=== PATIENT | female | born 1975 | race African-American/Black ===

== ENCOUNTER 2016-08-09 13:07 | Inpatient (IN) | payer OTHER ==
[2016-08-09 13:28] VITALS: BMI 22.8
--- NOTE | 2016-08-09 14:21 | HP ---
CIWA Score - CIWA Score Nausea/Vomitin-Mild Nausea/No Vomiting Muscle Tremors: 4-Moderate,w/Arms Extend Anxiety: 4-Mod. Anxious/Guarded Agitation: 1-Slight > Activity Paroxysmal Sweats: 1-Minimal Palms Moist Orientation: 0-Oriented Tacttile Disturbances: 1-Very Mild Itch/Numbness Auditory Disturbances: 1-Very Mild Visual Disturbances: 1-Very Mild Sensitivity Headache: 1-Very Mild CIWA-Ar Total Score: 15 Admission ROS BHS - HPI Chief Complaint: I'm tired, I want to stop Allergies/Adverse Reactions: Allergies Allergy/AdvReac Type Severity Reaction Status Date / Time acetaminophen Allergy Verified 01/23/16 16:10 shellfish derived Allergy Verified 01/23/16 16:10 History of Present Illness: 41 yo woman here for detox from alcohol - one of several detox admissions. Has had alcohol related seizures - last two years ago and black outs. urine tox + cocaine - states uses it rarely. States was in [facility] on 08/04/16 for a few hours for intravenous fluids. Exam Limitations: Clinical Condition - Ebola screening Have you traveled outside of the country in the last 21 days: No Have you had contact with anyone from an Ebola affected area: No Have you been sick,other than usual withdrawal symptoms: No Do you have a fever: No - Review of Systems Constitutional: Loss of Appetite, Malaise, Changes in sleep EENT: reports: Blurred Vision Respiratory: reports: No Symptoms reported Cardiac: reports: No Symptoms Reported GI: reports: Poor Appetite, Indigestion : reports: Burning Musculoskeletal: reports: No Symptoms Reported Integumentary: reports: Dryness Neuro: reports: Headache, Seizure Endocrine: reports: No Symptoms Reported Hematology: reports: No Symptoms Reported Psychiatric: reports: Judgement Intact, Mood/Affect Appropiate, Orientated x3, Anxious Other Systems: Reviewed and Negative Patient History - Patient Medical History Hx Anemia: Yes (iron) Hx Asthma: Yes Hx Chronic Obstructive Pulmonary Disease (COPD): Yes Hx Cancer: No Hx Cardiac Disorders: Yes (Heart Murmur) Hx Congestive Heart Failure: No Hx Hypertension: Yes Hx Hypercholesterolemia: No Hx Pacemaker: No HX Cerebrovascular Accident: No Hx Seizures: Yes (Last 2014) Hx Dementia: No Hx Diabetes: No Hx Gastrointestinal Disorders: Yes (Acid reflux) Hx Liver Disease: No Hx Genitourinary Disorders: No Hx Sexually Transmitted Disorders: No Hx Renal Disease (ESRD): No Hx Thyroid Disease: No Hx Human Immunodeficiency Virus (HIV): No Hx Hepatitis C: No Hx Depression: Yes (never hospitalized) Hx Suicide Attempt: No Hx Bipolar Disorder: Yes Hx Schizophrenia: Yes (on meds) - Patient Surgical History Past Surgical History: Yes Hx Neurologic Surgery: No Hx Cataract Extraction: No Hx Cardiac Surgery: No Hx Lung Surgery: No Hx Breast Surgery: No Hx Breast Biopsy: No Hx Abdominal Surgery: No Hx Appendectomy: No Hx Cholecystectomy: No Hx Genitourinary Surgery: No Hx Section: Yes (1997) Hx Orthopedic Surgery: Yes (2015 right knee, 2012 left neck) Hx Hysterectomy: No Anesthesia Reaction: No - PPD History Previous Implant?: Yes Documented Results: Negative w/proof Date: 01/09/16 PPD to be Administered?: No - Reproductive History Patient is a Female of Child Bearing Age (11 -55 yrs old): Yes Last Menstrual Period: 01/07/16 - Smoking Cessation Smoking history: Current every day smoker Have you smoked in the past 12 months: Yes Aproximately how many cigarettes per day: 20 Hx Chewing Tobacco Use: No Initiated information on smoking cessation: Yes 'Breaking Loose' booklet given: 08/09/16 (give on floor) - Substance & Tx. History Hx Alcohol Use: Yes Substance Use Type: Alcohol Hx Substance Use Treatment: Yes (detox, rehab) - Substances Abused Alcohol Route: Oral Frequency: Daily Amount used: 2 pints liquor; 2 cans beer Age of first use: 15 Date of Last Use: 08/09/16 Family Disease History - Family Disease History Family Disease History: Diabetes: Grandparent, Heart Disease: Mother (alive, htn ), CA: Father (, etoh), Other: Father, Mother, Brother (etoh), Sister ( due to alcohol) Admission Physical Exam BHS - Vital Signs Vital Signs: Vital Signs - 24 hr 08/09/16 13:26 Temperature 96.6 F L Pulse Rate 66 Respiratory 20 Rate Blood Pressure 144/71 - Physical General Appearance: Yes: Nourished, Appropriately Dressed, Mild Distress, Anxious, Other (poor dentition) HEENTM: Yes: Hearing grossly Normal, Normocephalic, Normal Voice Respiratory: Yes: Normal Breath Sounds, No Respiratory Distress Neck: Yes: No masses,lesions,Nodules, Supple Breast: Yes: Breast Exam Deferred Cardiology: Yes: Regular Rhythm, Regular Rate Abdominal: Yes: Soft Genitourinary: Yes: Frequency Back: Yes: Normal Inspection Musculoskeletal: Yes: full range of Motion, Gait Steady Extremities: Yes: Normal Inspection, Non-Tender Neurological: Yes: Fully Oriented, Alert, Normal Mood/Affect, Normal Response Integumentary: Yes: Normal Color, Warm Lymphatic: Yes: Within Normal Limits - Diagnostic (1) GERD (gastroesophageal reflux disease) Current Visit: Yes Status: Chronic Qualifiers: Esophagitis presence: esophagitis presence not specified Qualified Code(s): K21.9 - Gastro-esophageal reflux disease without esophagitis (2) Hypertension Current Visit: Yes Status: Chronic Qualifiers: Hypertension type: essential hypertension Qualified Code(s): I10 - Essential (primary) hypertension (3) Nicotine dependence Current Visit: Yes Status: Chronic Qualifiers: Nicotine product type: cigarettes Substance use status: uncomplicated Qualified Code(s): F17.210 - Nicotine dependence, cigarettes, uncomplicated (4) Alcohol dependence with uncomplicated withdrawal Current Visit: Yes Status: Chronic Cleared for Admission [facility] - Detox or Rehab [facility] Level of Care: Medically Managed Detox Regimen/Protocol: Librium [facility] Breath Alcohol Content Breath Alcohol Content: 0.180 Urine Pregancy Test - Result Urine Test Results: Negative- NO Line Present Urine Drug Screen - Results Drug Screen Negative: No Urine Drug Screen Results: MARIBEL-Cocaine, BAR-Barbiturates
[2016-08-09] MEDS ORDERED: NICOTINE POLACRILEX 4 MG GUM BUC PRN (14:32)
[2016-08-09] MEDS ORDERED: MAGNESIUM HYDROX 2400MG/30ML ORAL SUSPENSION 30 ML CUP PO PRN (14:32)
[2016-08-09] MEDS ORDERED: P-EPHED 60MG/TRIPROLIDI 2.5MG TABLET PO PRN (14:32)
[2016-08-09] MEDS ORDERED: MAG HYDROX/AL HYDROX/SIMETH 30 ML UNIT-DOSE CUP PO PRN (14:32)
[2016-08-09] MEDS ORDERED: MAGNESIUM CITRATE 300 ML BOTTLE PO PRN (14:32)
[2016-08-09] MEDS ORDERED: MENTHOL/PHENOL 1 EACH UD MM PRN (14:32)
[2016-08-09] MEDS ORDERED: guaiFENesin/D-METHORPHAN HB 10 ML UNIT-DOSE CUPS PO PRN (14:32)
[2016-08-09] MEDS ORDERED: diphenhydrAMINE HCL 50 MG CAPSULE PO PRN (14:32)
[2016-08-09] MEDS ORDERED: LOPERAMIDE HCL 2 MG CAPSULE PO PRN (14:32)
[2016-08-09] MEDS ORDERED: IBUPROFEN 400 MG TABLET (FP) PO PRN (14:32)
[2016-08-09] MEDS ORDERED: chlordiazePOXIDE HCL 25 MG CAPSULE PO ONE (14:32)
[2016-08-09] MEDS ORDERED: COLLOIDAL OATMEAL 1 BAR EACH TP PRN (14:34)
[2016-08-09] MEDS: NICOTINE 21 MG/24 HOURS TOPICAL PATCH TD SCH (16:16)
[2016-08-09] MEDS: chlordiazePOXIDE HCL 25 MG CAPSULE PO SCH ×2 (17:27→22:27)
[2016-08-09 17:57] LABS: URINE APPEARANCE CLEAR; URINE BILIRUBIN NEGATIVE (NEGATIVE); URINE BLOOD NEGATIVE (NEGATIVE); URINE COLOR STRAW; URINE GLUCOSE (UA) NEGATIVE (NEGATIVE); URINE KETONE NEGATIVE (NEGATIVE); URINE LEUK ESTERASE NEGATIVE (NEGATIVE); URINE NITRITE NEGATIVE (NEGATIVE); URINE PROTEIN NEGATIVE (NEGATIVE); URINE UROBILINOGEN NEGATIVE E.U./dl (0.2-1.0)
[2016-08-09] MEDS: THIAMINE HCL 100 MG TABLET (FP) PO SCH (22:27)
[2016-08-10] MEDS: chlordiazePOXIDE HCL 25 MG CAPSULE PO SCH ×4 (05:26→22:19)
[2016-08-10] MEDS: PRENATAL VITAMINS W/ FOLIC ACID TABLET (FP) PO SCH (10:31)
[2016-08-10] MEDS: hydrOXYzine PAMOATE 50 MG CAPSULE (FP) PO PRN (10:32)
[2016-08-10] MEDS: NICOTINE 21 MG/24 HOURS TOPICAL PATCH TD SCH (10:32)
[2016-08-10] MEDS ORDERED: FERROUS SO4 325 MG TABLET (FP) PO SCH ×2 (10:45→11:15)
[2016-08-10 10:50] LABS: ALBUMIN 3.5 g/dl (3.4-5.0); ANION GAP 14 (8-16); CALCIUM 8.5 mg/dL (8.5-10.1); CO2 24 mmol/L (21-32); CREATININE 0.7 mg/dL (0.55-1.02); GLUCOSE,RANDOM 84 mg/dL (74-106); SGPT/ALT 17 U/L (12-78)
[2016-08-10 10:52] LABS: ALK PHOS 80 U/L (45-117); BILIRUBIN,TOTAL 0.9 mg/dL (0.2-1.0); TOT PROT 7.7 g/dl (6.4-8.2)
[2016-08-10 10:57] LABS: SGOT/AST 33 U/L (15-37)
[2016-08-10 11:03] LABS: MCH 31.1 pg (25.7-33.7); MCHC 32.1 g/dl (32.0-36.0); MEAN CELL VOLUME 96.8 fl (80-96); MEAN PLT VOLUME 9.4 fl (7.5-11.1); PLATELET COUNT 153 K/MM3 (134-434); RDW 18.2 % (11.6-15.6); WHITE BLOOD COUNT 7.4 K/mm3 (4.0-10.0)
--- NOTE | 2016-08-10 11:06 | PN ---
S CIWA - CIWA Score Nausea/Vomitin Muscle Tremors: 3 Anxiety: 3 Agitation: 3 Paroxysmal Sweats: 1-Minimal Palms Moist Orientation: 0-Oriented Tacttile Disturbances: 1-Very Mild Itch/Numbness Auditory Disturbances: 1-Very Mild Visual Disturbances: 1-Very Mild Sensitivity Headache: 2-Mild CIWA-Ar Total Score: 18 BHS Progress Note (SOAP) Subjective: alert,irritable,anxious,interrupted sleep,tremor Objective: 08/10/16 10:57 Vital Signs Temperature 97.2 F L 08/10/16 09:26 Pulse Rate 69 08/10/16 09:26 Respiratory Rate 18 08/10/16 09:26 Blood Pressure 150/80 08/10/16 09:26 O2 Sat by Pulse Oximetry (%) Laboratory Last Values Sodium 138 mmol/L (136-145) 08/10/16 07:45 Potassium 4.5 mmol/L (3.5-5.1) D 08/10/16 07:45 Chloride 100 mmol/L (98-107) 08/10/16 07:45 Carbon Dioxide 24 mmol/L (21-32) 08/10/16 07:45 Anion Gap 14 (8-16) 08/10/16 07:45 BUN 9 mg/dL (7-18) D 08/10/16 07:45 Creatinine 0.7 mg/dL (0.55-1.02) 08/10/16 07:45 Creat Clearance w eGFR > 60 (>60) 08/10/16 07:45 Random Glucose 84 mg/dL (74-106) 08/10/16 07:45 Calcium 8.5 mg/dL (8.5-10.1) 08/10/16 07:45 Total Bilirubin 0.9 mg/dL (0.2-1.0) D 08/10/16 07:45 AST 33 U/L (15-37) D 08/10/16 07:45 ALT 17 U/L (12-78) D 08/10/16 07:45 Alkaline Phosphatase 80 U/L (45-117) D 08/10/16 07:45 Total Protein 7.7 g/dl (6.4-8.2) 08/10/16 07:45 Albumin 3.5 g/dl (3.4-5.0) 08/10/16 07:45 Urine Color Straw 08/09/16 17:40 Urine Appearance Clear 08/09/16 17:40 Urine pH 7.0 (5.0-8.0) D 08/09/16 17:40 Ur Specific [place] 1.006 (1.001-1.035) 08/09/16 17:40 Urine Protein Negative (NEGATIVE) 08/09/16 17:40 Urine Glucose (UA) Negative (NEGATIVE) 08/09/16 17:40 Urine Ketones Negative (NEGATIVE) 08/09/16 17:40 Urine Blood Negative (NEGATIVE) 08/09/16 17:40 Urine Nitrite Negative (NEGATIVE) 08/09/16 17:40 Urine Bilirubin Negative (NEGATIVE) 08/09/16 17:40 Urine Urobilinogen Negative E.U./dl (0.2-1.0) 08/09/16 17:40 Ur Leukocyte Esterase Negative (NEGATIVE) 08/09/16 17:40 labs pending Assessment: 08/10/16 11:06 withdrawal symptom Plan: continue detox
--- NOTE | 2016-08-10 11:17 | PN ---
S Progress Note Note: Psychiatry Attending's on-call note : Called to enter orders. Medications :olanzapine,risperdal,gabapentin and trazodone. For this 41 y/o AA female seeking detox treatment on . Addressing alcohol and cocaine dependence.Patient already known to me. Previous charts and S report are reviewed.Spoke to patient via telephone. Eager to resume medications.Most recent intake : a week ago (self-report). Plan : . Gabapentin 300 mg po tid . Risperdal 1 mg po daily . Trazodone 100 mg po hs . Olanzapine 5 mg po hs. Side effects/benefits discussed with patient. Case discussed with nurse in charge,Talib. Diagnosis : Bipolar Disorder.
[2016-08-10] MEDS: risperiDONE 1 MG TABLET (FP) PO SCH (11:25)
[2016-08-10] MEDS: RANITIDINE HCL 150 MG TABLET (FP) PO SCH ×2 (11:25→22:19)
[2016-08-10] MEDS: amLODIPine BESYLATE 5 MG TABLET (FP) PO SCH (11:25)
[2016-08-10] MEDS ORDERED: GABAPENTIN 300 MG CAPSULE (FP) PO ONE (11:30)
[2016-08-10] MEDS: chlordiazePOXIDE HCL 25 MG CAPSULE PO PRN ×2 (12:37→18:56)
[2016-08-10] MEDS: GABAPENTIN 300 MG CAPSULE (FP) PO SCH ×3 (15:31→22:19)
[2016-08-10] MEDS ORDERED: OLANZapine 5 MG TABLET PO SCH (22:00)
[2016-08-10] MEDS: THIAMINE HCL 100 MG TABLET (FP) PO SCH (22:19)
--- NOTE | 2016-08-11 00:48 | EKG ---
Test Reason : Blood Pressure : / mmHG Vent. Rate : 066 BPM Atrial Rate : 066 BPM P-R Int : 168 ms QRS Dur : 102 ms QT Int : 446 ms P-R-T Axes : 020 021 039 degrees QTc Int : 467 ms NORMAL SINUS RHYTHM NORMAL ECG NO PREVIOUS ECGS AVAILABLE Confirmed by ISABELL CRAIG MD ([id number]) on 08/11/2016 12:48:10 AM Referred By: Confirmed By:ISABELL CRAIG MD
[2016-08-11] MEDS: chlordiazePOXIDE HCL 25 MG CAPSULE PO SCH ×2 (05:30→10:38)
[2016-08-11] MEDS: GABAPENTIN 300 MG CAPSULE (FP) PO SCH ×3 (05:30→22:25)
--- NOTE | 2016-08-11 09:56 | CONSULT ---
[facility] Psychiatric Consult - Data Date of interview: 08/11/16 Admission source: [facility] Identifying data: Radmission to [facility] for this 41 y/o AA female seeking detox treatment on for alcohol dependence.Patient is single,a mother of four,domiciled,unemployed and supported on food stamps. Substance Abuse History: - Smoking Cessation. Smoking history: Current every day smoker. Have you smoked in the past 12 months: Yes. Aproximately how many cigarettes per day: 20. Hx Chewing Tobacco Use: No. Initiated information on smoking cessation: Yes. 'Breaking Loose' booklet given: 08/09/16 (give on floor ). - Substance & Tx. History. Hx Alcohol Use: Yes. Substance Use Type: Alcohol. Hx Substance Use Treatment: Yes (detox, rehab). - Substances Abused. Alcohol. Route: Oral. Frequency: Daily. Amount used: 2 pints liquor; 2 cans beer. Age of first use: 15. Date of Last Use: 08/09/16. Confirmed by the patient in this interview. Medical History: Bronchial asthma,COPD,hypothyroidism,withdrawal related seizure ,GERD,hypertension and anemia.History of orthosurgery on right knee (2016). Psychiatric History: Patient admits to a history of one psychiatric hospitalization ([facility]) in [place], [place] in 2016.Diagnosis : bipolar disorder.Medications : risperdal 1 mg/day + trazodone 100 mg/hs + gabapentin 300 mg po tid + olanzapine 10 mg/hs.Ms Calixto does admit to sporadic compliance with medications/clinic appointments.Patient denies history of suicide attempts. Physical/Sexual Abuse/Trauma History: Patient denies. Additional Comment: Urine Drug Screen Results: MARIBEL-Cocaine, BAR- Barbiturates.Noted. Mental Status Exam - Mental Status Exam Alert and Oriented to: Time, Place, Person Cognitive Function: Good Patient Appearance: Disheveled Mood: Nervous, Anxious, Apprehensive Affect: Mood Congruent Patient Behavior: Cooperative Speech Pattern: Clear Voice Loudness: Normal Thought Process: Goal Oriented Thought Disorder: Not Present Hallucinations: Denies Suicidal Ideation: Denies Homicidal Ideation: Denies Insight/Judgement: Poor Sleep: Poorly, Difficulty falling asleep (requests zolpidem;no longer wiiling to take trazodone) Appetite: Good Muscle strength/Tone: Normal Gait/Station: Normal Psychiatric Findings - Problem List ([place] 1, 2,3) (1) Alcohol dependence with uncomplicated withdrawal Current Visit: Yes Status: Acute (2) Nicotine dependence Current Visit: Yes Status: Acute Qualifiers: Nicotine product type: cigarettes Substance use status: uncomplicated Qualified Code(s): F17.210 - Nicotine dependence, cigarettes, uncomplicated (3) Cocaine abuse Current Visit: Yes Status: Acute (4) Bipolar disorder Current Visit: Yes Status: Chronic Qualifiers: Active/Remission status: in remission of unspecified degree Qualified Code(s): F31.70 - Bipolar disorder, currently in remission, most recent episode unspecified (5) Substance induced mood disorder Current Visit: Yes Status: Suspected (6) GERD (gastroesophageal reflux disease) Current Visit: Yes Status: Chronic Qualifiers: Esophagitis presence: esophagitis presence not specified Qualified Code(s): K21.9 - Gastro-esophageal reflux disease without esophagitis (7) Hypertension Current Visit: Yes Status: Chronic Qualifiers: Hypertension type: essential hypertension Qualified Code(s): I10 - Essential (primary) hypertension (8) Anemia Current Visit: No Status: Chronic Qualifiers: Anemia type: iron deficiency Iron deficiency anemia type: inadequate dietary iron intake Qualified Code(s): D50.8 - Other iron deficiency anemias (9) Insomnia Current Visit: Yes Status: Chronic - Initial Treatment Plan Initial Treatment Plan: Psychoeducation.Detoxification.Medications : risperdal 2 mg po daily (patient's request) + gabapentin 300 mg po tid + ambien 10 mg po hs prn + olanzapine 10 mg po hs.Side effects/benefits discussed with the patient.She agrees with this plan.Observation.
[2016-08-11] MEDS ORDERED: risperiDONE 2 MG TABLET PO SCH (10:00)
[2016-08-11] MEDS: PRENATAL VITAMINS W/ FOLIC ACID TABLET (FP) PO SCH (10:38)
[2016-08-11] MEDS: RANITIDINE HCL 150 MG TABLET (FP) PO SCH ×2 (10:38→22:24)
[2016-08-11] MEDS: amLODIPine BESYLATE 5 MG TABLET (FP) PO SCH (10:38)
[2016-08-11] MEDS: risperiDONE 1 MG TABLET (FP) PO SCH (10:39)
[2016-08-11] MEDS: risperiDONE 2 MG TABLET PO SCH (10:40)
[2016-08-11] MEDS: NICOTINE 21 MG/24 HOURS TOPICAL PATCH TD SCH (10:42)
--- NOTE | 2016-08-11 11:50 | PN ---
S CIWA - CIWA Score Nausea/Vomitin Muscle Tremors: 3 Anxiety: 3 Agitation: 2 Paroxysmal Sweats: 1-Minimal Palms Moist Orientation: 0-Oriented Tacttile Disturbances: 1-Very Mild Itch/Numbness Auditory Disturbances: 1-Very Mild Visual Disturbances: 1-Very Mild Sensitivity Headache: 2-Mild CIWA-Ar Total Score: 17 BHS Progress Note (SOAP) Subjective: ALERT,IRRITABLE,ANXIOUS,INTERRUPTED SLEEP,TREMOR Objective: 08/11/16 11:49 Vital Signs Temperature 97.8 F 08/11/16 10:00 Pulse Rate 71 08/11/16 10:00 Respiratory Rate 18 08/11/16 10:00 Blood Pressure 143/73 08/11/16 10:00 O2 Sat by Pulse Oximetry (%) 08/11/16 11:49 Laboratory Last Values WBC 7.4 K/mm3 (4.0-10.0) D 08/10/16 07:45 RBC 3.76 M/mm3 (3.60-5.2) 08/10/16 07:45 Hgb 11.7 GM/dL (10.7-15.3) 08/10/16 07:45 Hct 36.4 % (32.4-45.2) 08/10/16 07:45 MCV 96.8 fl (80-96) H 08/10/16 07:45 MCHC 32.1 g/dl (32.0-36.0) 08/10/16 07:45 RDW 18.2 % (11.6-15.6) H D 08/10/16 07:45 Plt Count 153 K/MM3 (134-434) 08/10/16 07:45 MPV 9.4 fl (7.5-11.1) 08/10/16 07:45 Sodium 138 mmol/L (136-145) 08/10/16 07:45 Potassium 4.5 mmol/L (3.5-5.1) D 08/10/16 07:45 Chloride 100 mmol/L (98-107) 08/10/16 07:45 Carbon Dioxide 24 mmol/L (21-32) 08/10/16 07:45 Anion Gap 14 (8-16) 08/10/16 07:45 BUN 9 mg/dL (7-18) D 08/10/16 07:45 Creatinine 0.7 mg/dL (0.55-1.02) 08/10/16 07:45 Creat Clearance w eGFR > 60 (>60) 08/10/16 07:45 Random Glucose 84 mg/dL (74-106) 08/10/16 07:45 Calcium 8.5 mg/dL (8.5-10.1) 08/10/16 07:45 Total Bilirubin 0.9 mg/dL (0.2-1.0) D 08/10/16 07:45 AST 33 U/L (15-37) D 08/10/16 07:45 ALT 17 U/L (12-78) D 08/10/16 07:45 Alkaline Phosphatase 80 U/L (45-117) D 08/10/16 07:45 Total Protein 7.7 g/dl (6.4-8.2) 08/10/16 07:45 Albumin 3.5 g/dl (3.4-5.0) 08/10/16 07:45 Urine Color Straw 08/09/16 17:40 Urine Appearance Clear 08/09/16 17:40 Urine pH 7.0 (5.0-8.0) D 08/09/16 17:40 Ur Specific [place] 1.006 (1.001-1.035) 08/09/16 17:40 Urine Protein Negative (NEGATIVE) 08/09/16 17:40 Urine Glucose (UA) Negative (NEGATIVE) 08/09/16 17:40 Urine Ketones Negative (NEGATIVE) 08/09/16 17:40 Urine Blood Negative (NEGATIVE) 08/09/16 17:40 Urine Nitrite Negative (NEGATIVE) 08/09/16 17:40 Urine Bilirubin Negative (NEGATIVE) 08/09/16 17:40 Urine Urobilinogen Negative E.U./dl (0.2-1.0) 08/09/16 17:40 Ur Leukocyte Esterase Negative (NEGATIVE) 08/09/16 17:40 RPR Titer Nonreactive (NONREACTIVE) 08/10/16 07:45 Assessment: 08/11/16 11:50 WITHDRAWAL SYMPTOM Plan: CONTINUE DETOX
[2016-08-11] MEDS: chlordiazePOXIDE 5 MG CAPSULE PO SCH ×2 (17:11→22:24)
[2016-08-11] MEDS ORDERED: traZODone HCL 100 MG TABLET (FP) PO SCH (22:00)
[2016-08-11] MEDS: OLANZapine 10 MG TABLET PO SCH (22:24)
[2016-08-11] MEDS: THIAMINE HCL 100 MG TABLET (FP) PO SCH (22:24)
[2016-08-11] MEDS: ZOLPIDEM TARTRATE 10 MG TABLET (PARK CARE ONLY) PO PRN (22:25)
[2016-08-12] MEDS: GABAPENTIN 300 MG CAPSULE (FP) PO SCH ×3 (05:51→22:15)
[2016-08-12] MEDS: chlordiazePOXIDE 5 MG CAPSULE PO SCH ×2 (05:51→10:30)
[2016-08-12] MEDS: PRENATAL VITAMINS W/ FOLIC ACID TABLET (FP) PO SCH (10:29)
[2016-08-12] MEDS: amLODIPine BESYLATE 5 MG TABLET (FP) PO SCH (10:30)
[2016-08-12] MEDS: RANITIDINE HCL 150 MG TABLET (FP) PO SCH ×2 (10:30→22:15)
[2016-08-12] MEDS: risperiDONE 2 MG TABLET PO SCH (10:30)
[2016-08-12] MEDS: NICOTINE 21 MG/24 HOURS TOPICAL PATCH TD SCH (10:32)
--- NOTE | 2016-08-12 12:13 | PN ---
BHS Progress Note (SOAP) Subjective: shakes, nausea, lbp Objective: 08/12/16 12:11 Vital Signs Temperature 97.2 F L 08/12/16 09:50 Pulse Rate 81 08/12/16 09:50 Respiratory Rate 16 08/12/16 09:50 Blood Pressure 145/77 08/12/16 09:50 O2 Sat by Pulse Oximetry (%) Vital Signs Temperature 97.2 F L 08/12/16 09:50 Pulse Rate 81 08/12/16 09:50 Respiratory Rate 16 08/12/16 09:50 Blood Pressure 145/77 08/12/16 09:50 O2 Sat by Pulse Oximetry (%) Laboratory Tests 08/09/16 08/10/16 08/10/16 17:40 07:45 07:45 WBC 7.4 D RBC 3.76 Hgb 11.7 Hct 36.4 MCV 96.8 H MCHC 32.1 RDW 18.2 H D Plt Count 153 MPV 9.4 Sodium 138 Potassium 4.5 D Chloride 100 Carbon Dioxide 24 Anion Gap 14 BUN 9 D Creatinine 0.7 Creat Clearance w eGFR > 60 Random Glucose 84 Calcium 8.5 Total Bilirubin 0.9 D AST 33 D ALT 17 D Alkaline Phosphatase 80 D Total Protein 7.7 Albumin 3.5 Urine Color Straw Urine Appearance Clear Urine pH 7.0 D Ur Specific [place] 1.006 Urine Protein Negative Urine Glucose (UA) Negative Urine Ketones Negative Urine Blood Negative Urine Nitrite Negative Urine Bilirubin Negative Urine Urobilinogen Negative Ur Leukocyte Esterase Negative RPR Titer 08/10/16 07:45 WBC RBC Hgb Hct MCV MCHC RDW Plt Count MPV Sodium Potassium Chloride Carbon Dioxide Anion Gap BUN Creatinine Creat Clearance w eGFR Random Glucose Calcium Total Bilirubin AST ALT Alkaline Phosphatase Total Protein Albumin Urine Color Urine Appearance Urine pH Ur Specific [place] Urine Protein Urine Glucose (UA) Urine Ketones Urine Blood Urine Nitrite Urine Bilirubin Urine Urobilinogen Ur Leukocyte Esterase RPR Titer Nonreactive pt aox3 in nad ambulating Assessment: 08/12/16 12:12 withdrawal sx;s Plan: cont. detox increase fluids lidocaine patch
[2016-08-12] MEDS ORDERED: LIDOCAINE 5% TOPICAL PATCH TP ONE (12:34)
[2016-08-12] MEDS: hydrOXYzine PAMOATE 50 MG CAPSULE (FP) PO PRN (16:00)
[2016-08-12] MEDS: chlordiazePOXIDE HCL 10 MG CAPSULE PO SCH ×2 (17:27→22:14)
[2016-08-12] MEDS: THIAMINE HCL 100 MG TABLET (FP) PO SCH (22:15)
[2016-08-12] MEDS: ZOLPIDEM TARTRATE 10 MG TABLET (PARK CARE ONLY) PO PRN (22:15)
[2016-08-12] MEDS: OLANZapine 10 MG TABLET PO SCH (23:41)
[2016-08-13] MEDS: GABAPENTIN 300 MG CAPSULE (FP) PO SCH (05:40)
[2016-08-13] MEDS: chlordiazePOXIDE HCL 10 MG CAPSULE PO SCH ×2 (05:40→10:47)
[2016-08-13] MEDS: hydrOXYzine PAMOATE 50 MG CAPSULE (FP) PO PRN (07:50)
--- NOTE | 2016-08-13 09:01 | DS ---
[facility] Detox Discharge Summary Admission Date: 08/09/16 Discharge Date: 08/13/16 - History Present History: Alcohol Dependence, Cocaine Dependence - Physical Exam Results Vital Signs: Vital Signs Temperature 97.5 F L 08/13/16 06:08 Pulse Rate 76 08/13/16 06:08 Respiratory Rate 18 08/13/16 06:08 Blood Pressure 127/83 08/13/16 06:08 O2 Sat by Pulse Oximetry (%) - Treatment Hospital Course: Detox Protocol Followed, Detoxed Safely, Responded well, Discharged Condition Good Patient has Accepted a Rehab Referral to: [facility] - Medication Discharge Medications: Ambulatory Orders Olanzapine [ZyPREXA -] 10 mg PO DAILY 01/07/16 Risperidone [Risperdal -] 1 mg PO DAILY 01/07/16 Trazodone HCl [Desyrel -] 100 mg PO HS 01/07/16 Amlodipine Besylate [Norvasc -] 5 mg PO DAILY #30 tablet 01/11/16 Gabapentin [Neurontin -] 400 mg PO TID #90 capsule 01/30/16 Ferrous Sulfate [Feosol] 325 mg PO DAILY #30 tablet 01/31/16 Ranitidine HCl [Zantac] 150 mg PO BID #60 tablet 01/31/16 Gabapentin [Neurontin -] 300 mg PO TID #60 capsule 08/11/16 Olanzapine [Zyprexa] 10 mg PO HS #30 tablet 08/11/16 Risperidone [Risperdal] 2 mg PO DAILY #30 tablet 08/11/16 Trazodone HCl 100 mg PO HS #30 tablet 08/11/16 - Diagnosis (1) Alcohol dependence with uncomplicated withdrawal Current Visit: Yes Status: Chronic (2) Cocaine abuse Current Visit: Yes Status: Chronic (3) Nicotine dependence Current Visit: Yes Status: Chronic Qualifiers: Nicotine product type: cigarettes Substance use status: uncomplicated Qualified Code(s): F17.210 - Nicotine dependence, cigarettes, uncomplicated (4) Bipolar disorder Current Visit: Yes Status: Chronic Qualifiers: Active/Remission status: in remission of unspecified degree Qualified Code(s): F31.70 - Bipolar disorder, currently in remission, most recent episode unspecified (5) GERD (gastroesophageal reflux disease) Current Visit: Yes Status: Chronic Qualifiers: Esophagitis presence: esophagitis presence not specified Qualified Code(s): K21.9 - Gastro-esophageal reflux disease without esophagitis (6) Hypertension Current Visit: Yes Status: Chronic Qualifiers: Hypertension type: essential hypertension Qualified Code(s): I10 - Essential (primary) hypertension (7) Anemia Current Visit: Yes Status: Chronic Qualifiers: Anemia type: iron deficiency Iron deficiency anemia type: inadequate dietary iron intake Qualified Code(s): D50.8 - Other iron deficiency anemias - AMA Did Patient Leave Against Medical Advice: No
[2016-08-13] MEDS ORDERED: HALOPERIDOL 2 MG TABLET PO STA (09:16)
[2016-08-13] MEDS ORDERED: diphenhydrAMINE HCL 50 MG CAPSULE PO STA (09:17)
--- NOTE | 2016-08-13 09:23 | PN ---
Psychiatric Progress Note Vital Signs: Vital Signs Period Temp Pulse Resp BP Sys/Hitchcock Pulse Ox Last 24 Hr 97.2 F-98.2 F 76-92 16-18 123-146/77-92 Date of Session: 08/13/16 Chief Complaint:: Anxiety HPI: Patient reports anxiety and agitations , asking for pharmacological intetvention,asking to reduce anxiety withdrawal symptoms Current Medications: Active Medications Generic Name Dose Route Start Last Admin Trade Name Freq PRN Reason Stop Dose Admin Al Hydroxide/Mg Hydroxide 30 ml 08/09/16 14:32 Mylanta Oral Suspension - PO Q6H PRN DYSPEPSIA Amlodipine Besylate 5 mg 08/10/16 11:00 08/12/16 10:30 Norvasc - PO 5 mg DAILY KAITY Administration Chlordiazepoxide HCl 10 mg 08/12/16 17:00 08/13/16 05:40 Librium - PO 08/13/16 11:01 10 mg [id number] KAITY Administration Colloidal Oatmeal 1 applic 08/09/16 14:34 Aveeno Soap - TP DAILY PRN HYGEINE Diphenhydramine HCl 50 mg 08/09/16 14:32 Benadryl - PO HSMR1 PRN INSOMNIA Diphenhydramine HCl 50 mg 08/13/16 09:17 Benadryl - PO 08/13/16 09:18 NOW STA Eucalyptus/Menthol/Phenol/Sorbitol 1 each 08/09/16 14:32 Cepastat Lozenge - MM Q4H PRN SORE THROAT Ferrous Sulfate 325 mg 08/10/16 11:15 Feosol - PO DAILY KAITY Gabapentin 400 mg 08/13/16 09:18 Neurontin - PO TID KAITY Guaifenesin 10 ml 08/09/16 14:32 Robitussin Dm - PO Q6H PRN COUGH Haloperidol 2 mg 08/13/16 09:16 Haldol - PO 08/13/16 09:17 ONCE STA Hydroxyzine Pamoate 50 mg 08/09/16 14:32 08/13/16 07:50 Vistaril - PO 50 mg Q4H PRN Administration AGITATION Ibuprofen 400 mg 08/09/16 14:32 08/13/16 06:44 Motrin - PO 400 mg Q6H PRN Administration SEVERE PAIN Lidocaine 1 patch 08/13/16 10:00 Lidoderm Patch - TP DAILY KAITY Loperamide HCl 4 mg 08/09/16 14:32 Imodium - PO Q6H PRN DIARRHEA Magnesium Citrate 300 ml 08/09/16 14:32 Citroma - PO Q48H PRN CONSTIPATION Magnesium Hydroxide 30 ml 08/09/16 14:32 Milk Of Magnesia - PO DAILY PRN CONSTIPATION Nicotine 21 mg 08/09/16 14:45 08/12/16 10:32 Nicoderm Patch - TD Not Given DAILY KAITY Nicotine Polacrilex 4 mg 08/09/16 14:32 Nicorette Gum - BUC Q2H PRN NICOTINE REPLACEMENT RX Olanzapine 10 mg 08/11/16 22:00 08/12/16 23:41 Zyprexa - PO 10 mg HS KAITY Administration Multivit/Folic Acid/Iron 1 tab 08/10/16 10:00 08/12/16 10:29 Vitamins (Sjr) - PO 1 tab DAILY KAITY Administration Pseudoephedrine/Triprolidine 1 combo 08/09/16 14:32 Actifed - PO TID PRN NASAL CONGESTION Ranitidine HCl 150 mg 08/10/16 10:45 08/12/16 22:15 Zantac - PO 150 mg BID KAITY Administration Risperidone 2 mg 08/11/16 10:30 08/12/16 10:30 Risperdal - PO 2 mg DAILY KAITY Administration Thiamine HCl 100 mg 08/09/16 22:00 08/12/16 22:15 Vitamin B1 - PO 100 mg HS KAITY Administration Zolpidem Tartrate 10 mg 08/11/16 22:00 08/12/16 22:15 Ambien - PO 08/14/16 21:59 10 mg HS PRN Administration INSOMNIA Medication(s) Change(s): Haldol 2mg po stat. Banadryl 50mg po stat. Gabapentin 400mg po tid Mental Status Exam - Mental Status Exam Alert and Oriented to: Person Cognitive Function: Fair Patient Appearance: Unkempt Mood: Sad Affect: Mood Congruent Patient Behavior: Cooperative Speech Pattern: Pressured Voice Loudness: Mildly Loud Thought Process: Goal Oriented Thought Disorder: Being Controlled Hallucinations: Denies Suicidal Ideation: Denies Homicidal Ideation: Denies Insight/Judgement: Fair Sleep: Difficulty falling asleep Appetite: Weight loss Muscle strength/Tone: Normal Gait/Station: Normal Additional Comments: Haldol 2mg po stat. Banadryl 50mg po stat. Gabapentin 400mg po tid Psychiatric Treatment Plan - Problem List (1) Alcohol dependence with uncomplicated withdrawal Current Visit: Yes (2) Bipolar disorder Current Visit: Yes Qualifiers: Active/Remission status: in remission of unspecified degree Qualified Code(s): F31.70 - Bipolar disorder, currently in remission, most recent episode unspecified (3) Cocaine abuse Current Visit: Yes (4) Nicotine dependence Current Visit: Yes Qualifiers: Nicotine product type: cigarettes Substance use status: uncomplicated Qualified Code(s): F17.210 - Nicotine dependence, cigarettes, uncomplicated (5) Substance induced mood disorder Current Visit: Yes (6) Personality disorder, unspecified Current Visit: No (7) Cocaine dependence with withdrawal Current Visit: Yes (8) 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 Banadryl 50mg po stat. Gabapentin 400mg po tid
[2016-08-13] MEDS ORDERED: diphenhydrAMINE HCL 25 MG CAPSULE (FP) PO ONE (09:24)
[2016-08-13] MEDS: PRENATAL VITAMINS W/ FOLIC ACID TABLET (FP) PO SCH (09:43)
[2016-08-13] MEDS: risperiDONE 2 MG TABLET PO SCH (09:43)
[2016-08-13] MEDS: RANITIDINE HCL 150 MG TABLET (FP) PO SCH (09:43)
[2016-08-13] MEDS: amLODIPine BESYLATE 5 MG TABLET (FP) PO SCH (09:43)
[2016-08-13 09:55] VITALS: BP 119/81; PULSE 84; TEMP 98.1
[2016-08-13] MEDS ORDERED: LIDOCAINE 5% TOPICAL PATCH TP SCH (10:00)
[2016-08-13] MEDS: NICOTINE 21 MG/24 HOURS TOPICAL PATCH TD SCH (10:53)
[2016-08-13] MEDS ORDERED: GABAPENTIN 400 MG CAPSULE (FP) PO SCH (14:00)
== END 2016-08-13 10:59 | disposition other institution (70) | DRG 774 ==
LOC: YASAS 13:07 → Y6N 15:09
PROVIDERS: ADMIT Internal Medicine; ATTEND Internal Medicine Addiction Medicine
PROC: HZ2ZZZZ Detoxification Services for Substance Abuse Treatment (ICD-10-PCS; principal; 2016-08-09)
DX: F10.230 Alcohol dependence with withdrawal, uncomplicated (principal); F14.280 Cocaine dependence with cocaine-induced anxiety disorder; F17.210 Nicotine dependence, cigarettes, uncomplicated; F31.70 Bipolar disorder, currently in remission, most recent episode unspecified; F19.24 Other psychoactive substance dependence with psychoactive substance-induced mood disorder; F60.9 Personality disorder, unspecified; R01.1 Cardiac murmur, unspecified; K21.9 Gastro-esophageal reflux disease without esophagitis; I10 Essential (primary) hypertension; D50.8 Other iron deficiency anemias; J45.909 Unspecified asthma, uncomplicated; J44.9 Chronic obstructive pulmonary disease, unspecified; E03.9 Hypothyroidism, unspecified; Z86.69 Personal history of other diseases of the nervous system and sense organs
CPT/HCPCS: 36415; 80053; 81003; 85027; 86593; 93005; 93010; J2794

== ENCOUNTER 2016-08-13 11:15 | Inpatient (IN) | payer OTHER ==
--- NOTE | 2016-08-13 12:03 | HP ---
Psychiatrist Admission - Data Date of interview: 08/13/16 Admission source: [address] [place] [address] Identifying data: This is the second admission to [address] [place] [address] for this 41 years old AA single female mother of 4 (children reside with their father).Patient is unemployed,undomiciled,supported by PA. Medical History: S/P R knee fracture,GERD,Hypothyroidism. Psychiatric History: Patient was dx with Bipolar disorder while in [facility] in 2007, placed on medications.She reports 4 psychiatric admissions,most recent was in 2016 to [facility].She is under care of psychiatrist at [facility].Medications:Neurontin 300 mg po tid,Risperidone 2 mg po bid.Patient was started on Zyprexa while in detox on [address] [place] [address]. Physical/Sexual Abuse/Trauma History: denies Allergies/Adverse Reactions: Allergies Allergy/AdvReac Type Severity Reaction Status Date / Time acetaminophen Allergy Verified 08/09/16 15:05 shellfish derived Allergy Verified 08/09/16 15:05 Date of last physical exam: 08/09/16 Concur with the findings of this exam: Yes - Substance Abuse/Tx History Hx Alcohol Use: Yes (reports drinking since 15 yo,2-4 pints of vodka) Hx Substance Use: Yes (crack since 19 yo,stopped heroin in 2013) Substance Use Type: Alcohol (reports drinking since 15 yo), Cocaine, Heroin Hx Substance Use Treatment: Yes (completed this program in 2015) - Admission Criteria Previous failed treatment: Yes Poor recovery environment: Yes Comorbidities: Yes Lacks judgement: Yes Mental Status Exam - Mental Status Exam Alert and Oriented to: Time, Place, Person Cognitive Function: Grossly Intact Patient Appearance: Unkempt Mood: Anxious Affect: Mood Congruent, Labile Patient Behavior: Cooperative Speech Pattern: Clear Voice Loudness: Normal Thought Process: Goal Oriented Thought Disorder: Not Present Hallucinations: Denies Suicidal Ideation: Denies Homicidal Ideation: Denies Insight/Judgement: Fair Sleep: Fair Appetite: Good Muscle strength/Tone: Normal Gait/Station: Normal Psychiatric Findings - Problem List ([place] 1, 2,3) (1) Cocaine dependence with withdrawal Current Visit: Yes Status: Chronic (2) Alcohol dependence with uncomplicated withdrawal Current Visit: Yes Status: Chronic (3) Anemia Current Visit: Yes Status: Chronic Qualifiers: (4) Bipolar disorder Current Visit: Yes Status: Chronic Qualifiers: (5) GERD (gastroesophageal reflux disease) Current Visit: Yes Status: Chronic Qualifiers: (6) Hypertension Current Visit: Yes Status: Chronic Qualifiers: - Initial Treatment Plan Initial Treatment Plan: Continue current medications as per plan.Will monitor progress.
[2016-08-13] MEDS: risperiDONE 2 MG TABLET PO SCH ×2 (13:55→21:12)
[2016-08-13] MEDS ORDERED: MAG HYDROX/AL HYDROX/SIMETH 30 ML UNIT-DOSE CUP PO PRN (14:32)
[2016-08-13] MEDS ORDERED: LOPERAMIDE HCL 2 MG CAPSULE PO PRN (14:32)
[2016-08-13] MEDS ORDERED: MAGNESIUM HYDROX 2400MG/30ML ORAL SUSPENSION 30 ML CUP PO PRN (14:32)
[2016-08-13] MEDS ORDERED: guaiFENesin/D-METHORPHAN HB 10 ML UNIT-DOSE CUPS PO PRN (14:32)
[2016-08-13] MEDS ORDERED: P-EPHED 60MG/TRIPROLIDI 2.5MG TABLET PO PRN (14:32)
[2016-08-13] MEDS ORDERED: IBUPROFEN 400 MG TABLET (FP) PO PRN (14:32)
[2016-08-13] MEDS ORDERED: MENTHOL/PHENOL 1 EACH UD MM PRN (14:32)
[2016-08-13] MEDS ORDERED: MAGNESIUM CITRATE 300 ML BOTTLE PO PRN (14:32)
--- NOTE | 2016-08-13 14:32 | HP ---
[facility] Rehab Assess/Revision - Admission History Admitted to Rehab from: [facility] [place] Date of Admission to Rehab: 08/13/16 - Vital signs Vital Signs: Vital Signs Period Temp Pulse Resp BP Sys/Hitchcock Pulse Ox Last 24 Hr 97.8 F 74 18 112/67 - Findings Detox History & Physical reviewed: Yes Concur with findings: Yes
[2016-08-13] MEDS: GABAPENTIN 300 MG CAPSULE (FP) PO SCH ×2 (14:58→21:12)
[2016-08-13] MEDS: AMITRIPTYLINE HCL 25 MG TABLET (FP) PO SCH ×2 (14:58→21:12)
[2016-08-13] MEDS: OLANZapine 10 MG TABLET PO SCH (21:12)
[2016-08-13] MEDS: RANITIDINE HCL 150 MG TABLET (FP) PO SCH (21:12)
[2016-08-13] MEDS: THIAMINE HCL 100 MG TABLET (FP) PO SCH (21:12)
[2016-08-13] MEDS: MIRTAZAPINE 15 MG TABLET (FP) PO SCH (21:14)
[2016-08-14] MEDS: GABAPENTIN 300 MG CAPSULE (FP) PO SCH ×3 (06:12→21:11)
[2016-08-14] MEDS: AMITRIPTYLINE HCL 25 MG TABLET (FP) PO SCH ×3 (06:12→21:11)
[2016-08-14] MEDS ORDERED: PT OWN MED DRAWER 7, Y5N ONE (08:38)
[2016-08-14] MEDS: PRENATAL VITAMINS W/ FOLIC ACID TABLET (FP) PO SCH (09:50)
[2016-08-14] MEDS: RANITIDINE HCL 150 MG TABLET (FP) PO SCH ×2 (09:50→21:11)
[2016-08-14] MEDS: amLODIPine BESYLATE 5 MG TABLET (FP) PO SCH (09:50)
[2016-08-14] MEDS: FERROUS SO4 325 MG TABLET (FP) PO SCH (09:50)
[2016-08-14] MEDS: LIDOCAINE 5% TOPICAL PATCH TP SCH (09:50)
[2016-08-14] MEDS: NICOTINE 21 MG/24 HOURS TOPICAL PATCH TD SCH (09:50)
[2016-08-14] MEDS: risperiDONE 2 MG TABLET PO SCH ×2 (09:50→21:11)
[2016-08-14] MEDS: THIAMINE HCL 100 MG TABLET (FP) PO SCH (21:11)
[2016-08-14] MEDS: MIRTAZAPINE 15 MG TABLET (FP) PO SCH (21:11)
[2016-08-14] MEDS: OLANZapine 10 MG TABLET PO SCH (21:11)
[2016-08-15] MEDS: GABAPENTIN 300 MG CAPSULE (FP) PO SCH ×3 (06:02→21:11)
[2016-08-15] MEDS: AMITRIPTYLINE HCL 25 MG TABLET (FP) PO SCH ×3 (06:02→21:11)
[2016-08-15] MEDS: LIDOCAINE 5% TOPICAL PATCH TP SCH (09:39)
[2016-08-15] MEDS: PRENATAL VITAMINS W/ FOLIC ACID TABLET (FP) PO SCH (09:40)
[2016-08-15] MEDS: RANITIDINE HCL 150 MG TABLET (FP) PO SCH ×2 (09:40→21:11)
[2016-08-15] MEDS: NICOTINE 21 MG/24 HOURS TOPICAL PATCH TD SCH (09:40)
[2016-08-15] MEDS: risperiDONE 2 MG TABLET PO SCH ×2 (09:41→21:11)
[2016-08-15] MEDS: FERROUS SO4 325 MG TABLET (FP) PO SCH (09:41)
[2016-08-15] MEDS: amLODIPine BESYLATE 5 MG TABLET (FP) PO SCH (09:41)
[2016-08-15] MEDS: THIAMINE HCL 100 MG TABLET (FP) PO SCH (21:11)
[2016-08-15] MEDS: OLANZapine 10 MG TABLET PO SCH (21:11)
[2016-08-15] MEDS: MIRTAZAPINE 15 MG TABLET (FP) PO SCH (21:11)
[2016-08-16] MEDS: AMITRIPTYLINE HCL 25 MG TABLET (FP) PO SCH ×3 (06:10→21:06)
[2016-08-16] MEDS: GABAPENTIN 300 MG CAPSULE (FP) PO SCH ×3 (06:10→21:06)
[2016-08-16] MEDS: LIDOCAINE 5% TOPICAL PATCH TP SCH (09:42)
[2016-08-16] MEDS: FERROUS SO4 325 MG TABLET (FP) PO SCH (09:42)
[2016-08-16] MEDS: RANITIDINE HCL 150 MG TABLET (FP) PO SCH ×2 (09:43→21:05)
[2016-08-16] MEDS: PRENATAL VITAMINS W/ FOLIC ACID TABLET (FP) PO SCH (09:43)
[2016-08-16] MEDS: NICOTINE 21 MG/24 HOURS TOPICAL PATCH TD SCH (09:43)
[2016-08-16] MEDS: risperiDONE 2 MG TABLET PO SCH ×2 (09:43→21:06)
[2016-08-16] MEDS: amLODIPine BESYLATE 5 MG TABLET (FP) PO SCH (09:43)
[2016-08-16] MEDS: hydrOXYzine PAMOATE 50 MG CAPSULE (FP) PO PRN ×2 (09:44→15:58)
[2016-08-16] MEDS: NICOTINE POLACRILEX 4 MG GUM BUC PRN (09:45)
[2016-08-16] MEDS: OLANZapine 10 MG TABLET PO SCH (21:05)
[2016-08-16] MEDS: MIRTAZAPINE 15 MG TABLET (FP) PO SCH (21:06)
[2016-08-16] MEDS: THIAMINE HCL 100 MG TABLET (FP) PO SCH (21:06)
[2016-08-17] MEDS: AMITRIPTYLINE HCL 25 MG TABLET (FP) PO SCH ×3 (06:01→21:05)
[2016-08-17] MEDS: GABAPENTIN 300 MG CAPSULE (FP) PO SCH ×3 (06:01→21:06)
[2016-08-17] MEDS: LIDOCAINE 5% TOPICAL PATCH TP SCH (09:27)
[2016-08-17] MEDS: NICOTINE 21 MG/24 HOURS TOPICAL PATCH TD SCH (09:27)
[2016-08-17] MEDS: FERROUS SO4 325 MG TABLET (FP) PO SCH (09:28)
[2016-08-17] MEDS: PRENATAL VITAMINS W/ FOLIC ACID TABLET (FP) PO SCH (09:28)
[2016-08-17] MEDS: risperiDONE 2 MG TABLET PO SCH ×2 (09:28→21:04)
[2016-08-17] MEDS: amLODIPine BESYLATE 5 MG TABLET (FP) PO SCH (09:28)
[2016-08-17] MEDS: RANITIDINE HCL 150 MG TABLET (FP) PO SCH ×2 (09:28→21:05)
[2016-08-17] MEDS: NICOTINE POLACRILEX 4 MG GUM BUC PRN (09:29)
[2016-08-17] MEDS: hydrOXYzine PAMOATE 50 MG CAPSULE (FP) PO PRN (18:02)
[2016-08-17] MEDS: OLANZapine 10 MG TABLET PO SCH (21:04)
[2016-08-17] MEDS: THIAMINE HCL 100 MG TABLET (FP) PO SCH (21:05)
[2016-08-17] MEDS: MIRTAZAPINE 15 MG TABLET (FP) PO SCH (21:05)
[2016-08-17] MEDS: diphenhydrAMINE HCL 50 MG CAPSULE PO PRN (21:08)
[2016-08-18] MEDS: GABAPENTIN 300 MG CAPSULE (FP) PO SCH ×2 (06:07→13:10)
[2016-08-18] MEDS: AMITRIPTYLINE HCL 25 MG TABLET (FP) PO SCH ×3 (06:07→21:21)
[2016-08-18] MEDS: PRENATAL VITAMINS W/ FOLIC ACID TABLET (FP) PO SCH (09:55)
[2016-08-18] MEDS: amLODIPine BESYLATE 5 MG TABLET (FP) PO SCH (09:56)
[2016-08-18] MEDS: risperiDONE 2 MG TABLET PO SCH ×2 (09:56→21:21)
[2016-08-18] MEDS: LIDOCAINE 5% TOPICAL PATCH TP SCH (09:56)
[2016-08-18] MEDS: NICOTINE 21 MG/24 HOURS TOPICAL PATCH TD SCH (09:56)
[2016-08-18] MEDS: FERROUS SO4 325 MG TABLET (FP) PO SCH (09:56)
[2016-08-18] MEDS: RANITIDINE HCL 150 MG TABLET (FP) PO SCH ×2 (09:56→21:21)
[2016-08-18] MEDS: hydrOXYzine PAMOATE 50 MG CAPSULE (FP) PO PRN (13:39)
--- NOTE | 2016-08-18 13:39 | PN ---
Psychiatric Progress Note Vital Signs: Vital Signs Period Temp Pulse Resp BP Sys/Hitchcock Pulse Ox Last 24 Hr 97.8 F 90-94 16-18 107-115/57-73 Date of Session: 08/18/16 Chief Complaint:: Joselo still insomnic,nervious due to lack of sleeping." HPI: Patient addressed Cocaine,Alcohol dependence comorbid with Bipolar disorder. ROS: Significant for Anemia,GERD,HTN. Current Medications: Active Medications Generic Name Dose Route Start Last Admin Trade Name Freq PRN Reason Stop Dose Admin Al Hydroxide/Mg Hydroxide 30 ml 08/13/16 14:32 Mylanta Oral Suspension - PO Q6H PRN DYSPEPSIA Amitriptyline HCl 25 mg 08/13/16 14:00 08/18/16 13:10 Elavil - PO 25 mg TID KAITY Administration Amlodipine Besylate 5 mg 08/14/16 10:00 08/18/16 09:56 Norvasc - PO 5 mg DAILY KAITY Administration Colloidal Oatmeal 1 applic 08/13/16 14:36 Aveeno Soap - TP DAILY PRN HYGEINE Diphenhydramine HCl 50 mg 08/13/16 13:36 08/17/16 21:08 Benadryl - PO 50 mg HS PRN Administration INSOMNIA Eucalyptus/Menthol/Phenol/Sorbitol 1 each 08/13/16 14:32 Cepastat Lozenge - MM Q4H PRN SORE THROAT Ferrous Sulfate 325 mg 08/14/16 10:00 08/18/16 09:56 Feosol - PO 325 mg DAILY KAITY Administration Gabapentin 400 mg 08/18/16 14:00 Neurontin - PO TID KAITY Guaifenesin 10 ml 08/13/16 14:32 Robitussin Dm - PO Q6H PRN COUGH Hydroxyzine Pamoate 50 mg 08/15/16 18:55 08/17/16 18:02 Vistaril - PO 50 mg Q4H PRN Administration ANXIETY Ibuprofen 400 mg 08/13/16 14:32 Motrin - PO Q6H PRN PAIN Lidocaine 1 patch 08/14/16 10:00 08/18/16 09:56 Lidoderm Patch - TP 1 patch DAILY KAITY Administration Loperamide HCl 4 mg 08/13/16 14:32 Imodium - PO Q6H PRN DIARRHEA Magnesium Hydroxide 30 ml 08/13/16 14:32 Milk Of Magnesia - PO DAILY PRN CONSTIPATION Mirtazapine 30 mg 08/18/16 22:00 Remeron - PO HS KAITY Nicotine 21 mg 08/14/16 10:00 08/18/16 09:56 Nicoderm Patch - TD 21 mg DAILY KAITY Administration Nicotine Polacrilex 4 mg 08/13/16 14:32 08/17/16 09:29 Nicorette Gum - BUC 4 mg Q2H PRN Administration NICOTINE REPLACEMENT RX Olanzapine 10 mg 08/13/16 22:00 08/17/16 21:04 Zyprexa - PO 10 mg HS KAITY Administration Multivit/Folic Acid/Iron 1 tab 08/14/16 10:00 08/18/16 09:55 Vitamins (Sjr) - PO 1 tab DAILY KAITY Administration Pseudoephedrine/Triprolidine 1 combo 08/13/16 14:32 Actifed - PO TID PRN NASAL CONGESTION Ranitidine HCl 150 mg 08/13/16 22:00 08/18/16 09:56 Zantac - PO 150 mg BID KAITY Administration Risperidone 2 mg 08/13/16 13:45 08/18/16 09:56 Risperdal - PO 2 mg BID KAITY Administration Thiamine HCl 100 mg 08/13/16 22:00 08/17/16 21:05 Vitamin B1 - PO 100 mg HS KAITY Administration Trazodone HCl 100 mg 08/18/16 22:00 Desyrel - PO HS KAITY Current Side Effect: No Lab tests ordered: No Lab tests reviewed: Yes Provider note:: Chart was revuewed ,patient was evaluated,medications management as well as treatment plan has been discussed with the patient.Properties of Trazodone has been discussed with the patient including side effects,benefits and dose adjustment.Patient is willing to try higher dose of Trazodone.Trazodone 50 mg po hs will be adjusted to 100 mg po hs. Supportive therapy porovided. Total face to face time:: 30 Mental Status Exam - Mental Status Exam Alert and Oriented to: Time, Place, Person Cognitive Function: Grossly Intact Patient Appearance: Well Groomed Mood: Anxious Affect: Mood Congruent, Labile Patient Behavior: Cooperative Speech Pattern: Clear Voice Loudness: Normal Thought Process: Goal Oriented Thought Disorder: Not Present Hallucinations: Denies Suicidal Ideation: Denies Homicidal Ideation: Denies Insight/Judgement: Fair Sleep: Difficulty falling asleep Appetite: Good Muscle strength/Tone: Normal Gait/Station: Normal Psychiatric Treatment Plan - Problem List (1) Cocaine dependence with withdrawal Current Visit: Yes (2) Alcohol dependence with uncomplicated withdrawal Current Visit: Yes (3) Anemia Current Visit: Yes Qualifiers: (4) Bipolar disorder Current Visit: Yes Qualifiers: (5) GERD (gastroesophageal reflux disease) Current Visit: Yes Qualifiers: (6) Hypertension Current Visit: Yes Qualifiers:
[2016-08-18] MEDS: THIAMINE HCL 100 MG TABLET (FP) PO SCH (21:21)
[2016-08-18] MEDS: OLANZapine 10 MG TABLET PO SCH (21:21)
[2016-08-18] MEDS: traZODone HCL 100 MG TABLET (FP) PO SCH (21:22)
[2016-08-18] MEDS: MIRTAZAPINE 30 MG TABLET (FP) PO SCH (21:23)
[2016-08-18] MEDS: GABAPENTIN 400 MG CAPSULE (FP) PO SCH (21:24)
[2016-08-19] MEDS: AMITRIPTYLINE HCL 25 MG TABLET (FP) PO SCH ×3 (06:25→21:16)
[2016-08-19] MEDS: GABAPENTIN 400 MG CAPSULE (FP) PO SCH ×3 (06:25→21:16)
[2016-08-19] MEDS: hydrOXYzine PAMOATE 50 MG CAPSULE (FP) PO PRN ×2 (07:41→15:48)
[2016-08-19] MEDS ORDERED: PT OWN MED DRAWER 7, Y5N ONE (08:26)
[2016-08-19] MEDS: amLODIPine BESYLATE 5 MG TABLET (FP) PO SCH (10:11)
[2016-08-19] MEDS: risperiDONE 2 MG TABLET PO SCH ×2 (10:11→21:16)
[2016-08-19] MEDS: RANITIDINE HCL 150 MG TABLET (FP) PO SCH ×2 (10:11→21:16)
[2016-08-19] MEDS: PRENATAL VITAMINS W/ FOLIC ACID TABLET (FP) PO SCH (10:11)
[2016-08-19] MEDS: NICOTINE 21 MG/24 HOURS TOPICAL PATCH TD SCH (10:11)
[2016-08-19] MEDS: FERROUS SO4 325 MG TABLET (FP) PO SCH (10:11)
[2016-08-19] MEDS: LIDOCAINE 5% TOPICAL PATCH TP SCH (10:12)
[2016-08-19] MEDS: THIAMINE HCL 100 MG TABLET (FP) PO SCH (21:16)
[2016-08-19] MEDS: OLANZapine 10 MG TABLET PO SCH (21:16)
[2016-08-19] MEDS: traZODone HCL 100 MG TABLET (FP) PO SCH (21:16)
[2016-08-19] MEDS: MIRTAZAPINE 30 MG TABLET (FP) PO SCH (22:01)
[2016-08-20] MEDS: AMITRIPTYLINE HCL 25 MG TABLET (FP) PO SCH ×3 (05:32→21:13)
[2016-08-20] MEDS: GABAPENTIN 400 MG CAPSULE (FP) PO SCH ×3 (05:32→21:14)
[2016-08-20] MEDS: hydrOXYzine PAMOATE 50 MG CAPSULE (FP) PO PRN ×3 (07:53→20:19)
[2016-08-20] MEDS: NICOTINE POLACRILEX 4 MG GUM BUC PRN (07:54)
[2016-08-20] MEDS: FERROUS SO4 325 MG TABLET (FP) PO SCH (10:06)
[2016-08-20] MEDS: amLODIPine BESYLATE 5 MG TABLET (FP) PO SCH (10:06)
[2016-08-20] MEDS: risperiDONE 2 MG TABLET PO SCH ×2 (10:06→21:14)
[2016-08-20] MEDS: PRENATAL VITAMINS W/ FOLIC ACID TABLET (FP) PO SCH (10:06)
[2016-08-20] MEDS: RANITIDINE HCL 150 MG TABLET (FP) PO SCH ×2 (10:06→21:13)
[2016-08-20] MEDS: LIDOCAINE 5% TOPICAL PATCH TP SCH (10:06)
[2016-08-20] MEDS: NICOTINE 21 MG/24 HOURS TOPICAL PATCH TD SCH (10:07)
[2016-08-20] MEDS ORDERED: PT OWN MED DRAWER 7, Y5N ONE (10:33)
[2016-08-20] MEDS: traZODone HCL 100 MG TABLET (FP) PO SCH (21:13)
[2016-08-20] MEDS: THIAMINE HCL 100 MG TABLET (FP) PO SCH (21:14)
[2016-08-20] MEDS: MIRTAZAPINE 30 MG TABLET (FP) PO SCH (21:14)
[2016-08-20] MEDS: OLANZapine 10 MG TABLET PO SCH (21:14)
[2016-08-21] MEDS: hydrOXYzine PAMOATE 50 MG CAPSULE (FP) PO PRN ×3 (03:06→16:02)
[2016-08-21] MEDS: GABAPENTIN 400 MG CAPSULE (FP) PO SCH ×3 (06:14→21:09)
[2016-08-21] MEDS: AMITRIPTYLINE HCL 25 MG TABLET (FP) PO SCH ×3 (06:14→21:09)
[2016-08-21] MEDS: FERROUS SO4 325 MG TABLET (FP) PO SCH (10:05)
[2016-08-21] MEDS: LIDOCAINE 5% TOPICAL PATCH TP SCH (10:05)
[2016-08-21] MEDS: risperiDONE 2 MG TABLET PO SCH ×2 (10:05→21:09)
[2016-08-21] MEDS: amLODIPine BESYLATE 5 MG TABLET (FP) PO SCH (10:05)
[2016-08-21] MEDS: RANITIDINE HCL 150 MG TABLET (FP) PO SCH ×2 (10:05→21:09)
[2016-08-21] MEDS: PRENATAL VITAMINS W/ FOLIC ACID TABLET (FP) PO SCH (10:05)
[2016-08-21] MEDS: NICOTINE 21 MG/24 HOURS TOPICAL PATCH TD SCH (10:05)
[2016-08-21] MEDS: NICOTINE POLACRILEX 4 MG GUM BUC PRN (10:08)
[2016-08-21] MEDS: COLLOIDAL OATMEAL 1 BAR EACH TP PRN (16:02)
[2016-08-21] MEDS: MIRTAZAPINE 30 MG TABLET (FP) PO SCH (21:09)
[2016-08-21] MEDS: THIAMINE HCL 100 MG TABLET (FP) PO SCH (21:09)
[2016-08-21] MEDS: traZODone HCL 100 MG TABLET (FP) PO SCH (21:09)
[2016-08-21] MEDS: OLANZapine 10 MG TABLET PO SCH (21:09)
[2016-08-22] MEDS: GABAPENTIN 400 MG CAPSULE (FP) PO SCH ×3 (06:07→21:08)
[2016-08-22] MEDS: AMITRIPTYLINE HCL 25 MG TABLET (FP) PO SCH ×3 (06:07→21:08)
[2016-08-22] MEDS: hydrOXYzine PAMOATE 50 MG CAPSULE (FP) PO PRN (07:24)
[2016-08-22] MEDS: LIDOCAINE 5% TOPICAL PATCH TP SCH (09:56)
[2016-08-22] MEDS: NICOTINE 21 MG/24 HOURS TOPICAL PATCH TD SCH (09:56)
[2016-08-22] MEDS: PRENATAL VITAMINS W/ FOLIC ACID TABLET (FP) PO SCH (09:56)
[2016-08-22] MEDS: FERROUS SO4 325 MG TABLET (FP) PO SCH (09:57)
[2016-08-22] MEDS: risperiDONE 2 MG TABLET PO SCH ×2 (09:57→21:08)
[2016-08-22] MEDS: amLODIPine BESYLATE 5 MG TABLET (FP) PO SCH (09:57)
[2016-08-22] MEDS: RANITIDINE HCL 150 MG TABLET (FP) PO SCH ×2 (09:57→21:08)
[2016-08-22] MEDS: NICOTINE POLACRILEX 4 MG GUM BUC PRN (09:59)
[2016-08-22] MEDS: traZODone HCL 100 MG TABLET (FP) PO SCH (21:08)
[2016-08-22] MEDS: THIAMINE HCL 100 MG TABLET (FP) PO SCH (21:08)
[2016-08-22] MEDS: MIRTAZAPINE 30 MG TABLET (FP) PO SCH (21:08)
[2016-08-22] MEDS: OLANZapine 10 MG TABLET PO SCH (21:08)
[2016-08-23] MEDS: GABAPENTIN 400 MG CAPSULE (FP) PO SCH ×3 (06:05→21:23)
[2016-08-23] MEDS: AMITRIPTYLINE HCL 25 MG TABLET (FP) PO SCH ×3 (06:06→21:21)
[2016-08-23] MEDS: hydrOXYzine PAMOATE 50 MG CAPSULE (FP) PO PRN ×2 (07:48→13:06)
[2016-08-23] MEDS: LIDOCAINE 5% TOPICAL PATCH TP SCH (09:51)
[2016-08-23] MEDS: NICOTINE 21 MG/24 HOURS TOPICAL PATCH TD SCH (09:52)
[2016-08-23] MEDS: risperiDONE 2 MG TABLET PO SCH ×2 (09:52→21:21)
[2016-08-23] MEDS: PRENATAL VITAMINS W/ FOLIC ACID TABLET (FP) PO SCH (09:52)
[2016-08-23] MEDS: NICOTINE POLACRILEX 4 MG GUM BUC PRN (09:52)
[2016-08-23] MEDS: amLODIPine BESYLATE 5 MG TABLET (FP) PO SCH (09:52)
[2016-08-23] MEDS: FERROUS SO4 325 MG TABLET (FP) PO SCH (09:52)
[2016-08-23] MEDS: RANITIDINE HCL 150 MG TABLET (FP) PO SCH ×2 (09:52→21:21)
[2016-08-23] MEDS: OLANZapine 10 MG TABLET PO SCH (21:21)
[2016-08-23] MEDS: THIAMINE HCL 100 MG TABLET (FP) PO SCH (21:21)
[2016-08-23] MEDS: traZODone HCL 100 MG TABLET (FP) PO SCH (21:21)
[2016-08-23] MEDS: MIRTAZAPINE 30 MG TABLET (FP) PO SCH (21:23)
[2016-08-24] MEDS: GABAPENTIN 400 MG CAPSULE (FP) PO SCH ×3 (06:36→21:10)
[2016-08-24] MEDS: AMITRIPTYLINE HCL 25 MG TABLET (FP) PO SCH ×3 (06:36→21:10)
[2016-08-24] MEDS: hydrOXYzine PAMOATE 50 MG CAPSULE (FP) PO PRN (07:50)
[2016-08-24] MEDS: LIDOCAINE 5% TOPICAL PATCH TP SCH (09:56)
[2016-08-24] MEDS: amLODIPine BESYLATE 5 MG TABLET (FP) PO SCH (09:56)
[2016-08-24] MEDS: RANITIDINE HCL 150 MG TABLET (FP) PO SCH ×2 (09:56→21:10)
[2016-08-24] MEDS: risperiDONE 2 MG TABLET PO SCH ×2 (09:56→21:10)
[2016-08-24] MEDS: NICOTINE 21 MG/24 HOURS TOPICAL PATCH TD SCH (09:56)
[2016-08-24] MEDS: PRENATAL VITAMINS W/ FOLIC ACID TABLET (FP) PO SCH (09:56)
[2016-08-24] MEDS: FERROUS SO4 325 MG TABLET (FP) PO SCH (09:56)
[2016-08-24] MEDS: NICOTINE POLACRILEX 4 MG GUM BUC PRN (09:58)
[2016-08-24] MEDS: THIAMINE HCL 100 MG TABLET (FP) PO SCH (21:09)
[2016-08-24] MEDS: MIRTAZAPINE 30 MG TABLET (FP) PO SCH (21:10)
[2016-08-24] MEDS: OLANZapine 10 MG TABLET PO SCH (21:10)
[2016-08-24] MEDS: traZODone HCL 100 MG TABLET (FP) PO SCH (21:10)
[2016-08-25] MEDS: GABAPENTIN 400 MG CAPSULE (FP) PO SCH ×3 (06:20→21:06)
[2016-08-25] MEDS: AMITRIPTYLINE HCL 25 MG TABLET (FP) PO SCH ×3 (06:20→21:05)
[2016-08-25] MEDS: NICOTINE 21 MG/24 HOURS TOPICAL PATCH TD SCH (10:08)
[2016-08-25] MEDS: LIDOCAINE 5% TOPICAL PATCH TP SCH (10:08)
[2016-08-25] MEDS: amLODIPine BESYLATE 5 MG TABLET (FP) PO SCH (10:09)
[2016-08-25] MEDS: RANITIDINE HCL 150 MG TABLET (FP) PO SCH ×2 (10:09→21:06)
[2016-08-25] MEDS: FERROUS SO4 325 MG TABLET (FP) PO SCH (10:09)
[2016-08-25] MEDS: risperiDONE 2 MG TABLET PO SCH ×2 (10:09→21:05)
[2016-08-25] MEDS: PRENATAL VITAMINS W/ FOLIC ACID TABLET (FP) PO SCH (10:10)
[2016-08-25] MEDS: hydrOXYzine PAMOATE 50 MG CAPSULE (FP) PO PRN ×2 (10:11→17:46)
[2016-08-25] MEDS ORDERED: PT OWN MED DRAWER 7, Y5N ONE ×2 (11:04→11:06)
[2016-08-25] MEDS: traZODone HCL 100 MG TABLET (FP) PO SCH (21:05)
[2016-08-25] MEDS: OLANZapine 10 MG TABLET PO SCH (21:06)
[2016-08-25] MEDS: MIRTAZAPINE 30 MG TABLET (FP) PO SCH (21:06)
[2016-08-25] MEDS: THIAMINE HCL 100 MG TABLET (FP) PO SCH (21:06)
[2016-08-26] MEDS: GABAPENTIN 400 MG CAPSULE (FP) PO SCH ×3 (06:03→21:13)
[2016-08-26] MEDS: AMITRIPTYLINE HCL 25 MG TABLET (FP) PO SCH ×3 (06:03→21:13)
[2016-08-26] MEDS: LIDOCAINE 5% TOPICAL PATCH TP SCH (10:00)
[2016-08-26] MEDS: PRENATAL VITAMINS W/ FOLIC ACID TABLET (FP) PO SCH (10:00)
[2016-08-26] MEDS: FERROUS SO4 325 MG TABLET (FP) PO SCH (10:00)
[2016-08-26] MEDS: RANITIDINE HCL 150 MG TABLET (FP) PO SCH ×2 (10:01→21:13)
[2016-08-26] MEDS: risperiDONE 2 MG TABLET PO SCH ×2 (10:01→21:13)
[2016-08-26] MEDS: amLODIPine BESYLATE 5 MG TABLET (FP) PO SCH (10:01)
[2016-08-26] MEDS: NICOTINE 21 MG/24 HOURS TOPICAL PATCH TD SCH (10:01)
[2016-08-26] MEDS: NICOTINE POLACRILEX 4 MG GUM BUC PRN (10:02)
[2016-08-26] MEDS: hydrOXYzine PAMOATE 50 MG CAPSULE (FP) PO PRN (17:50)
[2016-08-26] MEDS: traZODone HCL 100 MG TABLET (FP) PO SCH (21:13)
[2016-08-26] MEDS: OLANZapine 10 MG TABLET PO SCH (21:13)
[2016-08-26] MEDS: THIAMINE HCL 100 MG TABLET (FP) PO SCH (21:13)
[2016-08-26] MEDS: MIRTAZAPINE 30 MG TABLET (FP) PO SCH (21:13)
[2016-08-26] MEDS: DOCUSATE SODIUM 100 MG CAPSULE (FP) PO SCH (21:15)
[2016-08-27] MEDS: AMITRIPTYLINE HCL 25 MG TABLET (FP) PO SCH ×3 (06:06→21:14)
[2016-08-27] MEDS: GABAPENTIN 400 MG CAPSULE (FP) PO SCH ×3 (06:06→21:14)
[2016-08-27] MEDS: hydrOXYzine PAMOATE 50 MG CAPSULE (FP) PO PRN ×2 (08:56→18:59)
[2016-08-27] MEDS: PRENATAL VITAMINS W/ FOLIC ACID TABLET (FP) PO SCH (10:26)
[2016-08-27] MEDS: RANITIDINE HCL 150 MG TABLET (FP) PO SCH ×2 (10:27→21:14)
[2016-08-27] MEDS: amLODIPine BESYLATE 5 MG TABLET (FP) PO SCH (10:27)
[2016-08-27] MEDS: risperiDONE 2 MG TABLET PO SCH ×2 (10:27→21:15)
[2016-08-27] MEDS: DOCUSATE SODIUM 100 MG CAPSULE (FP) PO SCH ×2 (10:27→21:14)
[2016-08-27] MEDS: LIDOCAINE 5% TOPICAL PATCH TP SCH (10:27)
[2016-08-27] MEDS: FERROUS SO4 325 MG TABLET (FP) PO SCH (10:27)
[2016-08-27] MEDS: NICOTINE 21 MG/24 HOURS TOPICAL PATCH TD SCH (10:29)
[2016-08-27] MEDS: NICOTINE POLACRILEX 4 MG GUM BUC PRN (10:30)
[2016-08-27] MEDS ORDERED: LIDOCAINE VISCOUS 2% ORAL/TOP 20 ML UNIT-DOSE CUP MM PRN (15:31)
--- NOTE | 2016-08-27 15:34 | PN ---
[facility] Progress Note Note: c/o toothache teeth : generalize decay,carries & gingivitis P : amox 500mg tid
[2016-08-27] MEDS: AMOXICILLIN 500 MG CAPSULE (FP) PO SCH ×2 (17:54→21:14)
[2016-08-27] MEDS: MIRTAZAPINE 30 MG TABLET (FP) PO SCH (21:14)
[2016-08-27] MEDS: OLANZapine 10 MG TABLET PO SCH (21:14)
[2016-08-27] MEDS: traZODone HCL 100 MG TABLET (FP) PO SCH (21:14)
[2016-08-27] MEDS: THIAMINE HCL 100 MG TABLET (FP) PO SCH (21:16)
[2016-08-28] MEDS: GABAPENTIN 400 MG CAPSULE (FP) PO SCH ×3 (06:11→21:12)
[2016-08-28] MEDS: AMOXICILLIN 500 MG CAPSULE (FP) PO SCH ×3 (06:11→21:12)
[2016-08-28] MEDS: AMITRIPTYLINE HCL 25 MG TABLET (FP) PO SCH ×3 (06:12→21:12)
[2016-08-28] MEDS: IBUPROFEN 600 MG TABLET (FP) PO PRN ×2 (06:12→15:35)
[2016-08-28] MEDS: risperiDONE 2 MG TABLET PO SCH ×2 (10:09→21:12)
[2016-08-28] MEDS: RANITIDINE HCL 150 MG TABLET (FP) PO SCH ×2 (10:09→21:12)
[2016-08-28] MEDS: PRENATAL VITAMINS W/ FOLIC ACID TABLET (FP) PO SCH (10:09)
[2016-08-28] MEDS: amLODIPine BESYLATE 5 MG TABLET (FP) PO SCH (10:09)
[2016-08-28] MEDS: DOCUSATE SODIUM 100 MG CAPSULE (FP) PO SCH ×2 (10:09→21:12)
[2016-08-28] MEDS: NICOTINE 21 MG/24 HOURS TOPICAL PATCH TD SCH (10:10)
[2016-08-28] MEDS: FERROUS SO4 325 MG TABLET (FP) PO SCH (10:10)
[2016-08-28] MEDS: LIDOCAINE 5% TOPICAL PATCH TP SCH (10:10)
[2016-08-28] MEDS: NICOTINE POLACRILEX 4 MG GUM BUC PRN (13:04)
[2016-08-28] MEDS: NICOTINE 14 MG/24 HOURS TOPICAL PATCH TD SCH (17:20)
[2016-08-28] MEDS: traZODone HCL 100 MG TABLET (FP) PO SCH (21:12)
[2016-08-28] MEDS: diphenhydrAMINE HCL 50 MG CAPSULE PO PRN (21:12)
[2016-08-28] MEDS: MIRTAZAPINE 30 MG TABLET (FP) PO SCH (21:12)
[2016-08-28] MEDS: OLANZapine 10 MG TABLET PO SCH (21:14)
[2016-08-28] MEDS: THIAMINE HCL 100 MG TABLET (FP) PO SCH (21:40)
[2016-08-29] MEDS: AMOXICILLIN 500 MG CAPSULE (FP) PO SCH ×3 (06:23→21:14)
[2016-08-29] MEDS: GABAPENTIN 400 MG CAPSULE (FP) PO SCH ×3 (06:23→21:14)
[2016-08-29] MEDS: AMITRIPTYLINE HCL 25 MG TABLET (FP) PO SCH ×3 (06:23→21:17)
[2016-08-29] MEDS: IBUPROFEN 600 MG TABLET (FP) PO PRN (07:13)
[2016-08-29] MEDS: amLODIPine BESYLATE 5 MG TABLET (FP) PO SCH (10:06)
[2016-08-29] MEDS: RANITIDINE HCL 150 MG TABLET (FP) PO SCH ×2 (10:06→21:14)
[2016-08-29] MEDS: NICOTINE 14 MG/24 HOURS TOPICAL PATCH TD SCH (10:06)
[2016-08-29] MEDS: DOCUSATE SODIUM 100 MG CAPSULE (FP) PO SCH ×2 (10:06→21:14)
[2016-08-29] MEDS: risperiDONE 2 MG TABLET PO SCH ×2 (10:06→21:14)
[2016-08-29] MEDS: FERROUS SO4 325 MG TABLET (FP) PO SCH (10:06)
[2016-08-29] MEDS: PRENATAL VITAMINS W/ FOLIC ACID TABLET (FP) PO SCH (10:06)
[2016-08-29] MEDS: LIDOCAINE 5% TOPICAL PATCH TP SCH (10:07)
[2016-08-29] MEDS: MIRTAZAPINE 30 MG TABLET (FP) PO SCH (21:14)
[2016-08-29] MEDS: OLANZapine 10 MG TABLET PO SCH (21:14)
[2016-08-29] MEDS: traZODone HCL 100 MG TABLET (FP) PO SCH (21:14)
[2016-08-29] MEDS: THIAMINE HCL 100 MG TABLET (FP) PO SCH (21:14)
[2016-08-30] MEDS: GABAPENTIN 400 MG CAPSULE (FP) PO SCH ×3 (06:11→21:05)
[2016-08-30] MEDS: AMOXICILLIN 500 MG CAPSULE (FP) PO SCH ×3 (06:11→21:04)
[2016-08-30] MEDS: AMITRIPTYLINE HCL 25 MG TABLET (FP) PO SCH ×3 (06:11→21:05)
[2016-08-30] MEDS: NICOTINE 14 MG/24 HOURS TOPICAL PATCH TD SCH (09:39)
[2016-08-30] MEDS: amLODIPine BESYLATE 5 MG TABLET (FP) PO SCH (09:40)
[2016-08-30] MEDS: PRENATAL VITAMINS W/ FOLIC ACID TABLET (FP) PO SCH (09:40)
[2016-08-30] MEDS: risperiDONE 2 MG TABLET PO SCH ×2 (09:40→21:05)
[2016-08-30] MEDS: RANITIDINE HCL 150 MG TABLET (FP) PO SCH ×2 (09:41→21:05)
[2016-08-30] MEDS: DOCUSATE SODIUM 100 MG CAPSULE (FP) PO SCH ×2 (09:41→21:05)
[2016-08-30] MEDS: FERROUS SO4 325 MG TABLET (FP) PO SCH (09:41)
[2016-08-30] MEDS: hydrOXYzine PAMOATE 50 MG CAPSULE (FP) PO PRN (09:42)
[2016-08-30] MEDS: NICOTINE POLACRILEX 4 MG GUM BUC PRN (09:43)
[2016-08-30] MEDS: LIDOCAINE 5% TOPICAL PATCH TP SCH (09:43)
[2016-08-30] MEDS: traZODone HCL 100 MG TABLET (FP) PO SCH (21:05)
[2016-08-30] MEDS: OLANZapine 10 MG TABLET PO SCH (21:05)
[2016-08-30] MEDS: MIRTAZAPINE 30 MG TABLET (FP) PO SCH (21:05)
[2016-08-30] MEDS: THIAMINE HCL 100 MG TABLET (FP) PO SCH (21:06)
[2016-08-31] MEDS: AMITRIPTYLINE HCL 25 MG TABLET (FP) PO SCH ×3 (06:16→21:04)
[2016-08-31] MEDS: AMOXICILLIN 500 MG CAPSULE (FP) PO SCH ×3 (06:16→21:03)
[2016-08-31] MEDS: GABAPENTIN 400 MG CAPSULE (FP) PO SCH ×3 (06:16→21:04)
[2016-08-31] MEDS: FERROUS SO4 325 MG TABLET (FP) PO SCH (09:48)
[2016-08-31] MEDS: PRENATAL VITAMINS W/ FOLIC ACID TABLET (FP) PO SCH (09:48)
[2016-08-31] MEDS: DOCUSATE SODIUM 100 MG CAPSULE (FP) PO SCH ×2 (09:48→21:04)
[2016-08-31] MEDS: amLODIPine BESYLATE 5 MG TABLET (FP) PO SCH (09:48)
[2016-08-31] MEDS: NICOTINE 14 MG/24 HOURS TOPICAL PATCH TD SCH (09:49)
[2016-08-31] MEDS: risperiDONE 2 MG TABLET PO SCH ×2 (09:49→21:04)
[2016-08-31] MEDS: RANITIDINE HCL 150 MG TABLET (FP) PO SCH ×2 (09:49→21:04)
[2016-08-31] MEDS: LIDOCAINE 5% TOPICAL PATCH TP SCH (09:50)
[2016-08-31] MEDS: traZODone HCL 100 MG TABLET (FP) PO SCH (21:04)
[2016-08-31] MEDS: OLANZapine 10 MG TABLET PO SCH (21:04)
[2016-08-31] MEDS: MIRTAZAPINE 30 MG TABLET (FP) PO SCH (21:04)
[2016-08-31] MEDS: THIAMINE HCL 100 MG TABLET (FP) PO SCH (21:05)
[2016-09-01] MEDS: AMOXICILLIN 500 MG CAPSULE (FP) PO SCH ×3 (06:12→21:09)
[2016-09-01] MEDS: GABAPENTIN 400 MG CAPSULE (FP) PO SCH ×3 (06:13→21:09)
[2016-09-01] MEDS: AMITRIPTYLINE HCL 25 MG TABLET (FP) PO SCH ×3 (06:13→22:10)
[2016-09-01] MEDS: LIDOCAINE 5% TOPICAL PATCH TP SCH (09:43)
[2016-09-01] MEDS: NICOTINE 14 MG/24 HOURS TOPICAL PATCH TD SCH (09:43)
[2016-09-01] MEDS: RANITIDINE HCL 150 MG TABLET (FP) PO SCH ×2 (09:43→21:09)
[2016-09-01] MEDS: FERROUS SO4 325 MG TABLET (FP) PO SCH (09:43)
[2016-09-01] MEDS: PRENATAL VITAMINS W/ FOLIC ACID TABLET (FP) PO SCH (09:43)
[2016-09-01] MEDS: DOCUSATE SODIUM 100 MG CAPSULE (FP) PO SCH ×2 (09:43→21:09)
[2016-09-01] MEDS: amLODIPine BESYLATE 5 MG TABLET (FP) PO SCH (09:43)
[2016-09-01] MEDS: risperiDONE 2 MG TABLET PO SCH ×2 (09:43→21:09)
[2016-09-01] MEDS: MIRTAZAPINE 30 MG TABLET (FP) PO SCH (21:09)
[2016-09-01] MEDS: traZODone HCL 100 MG TABLET (FP) PO SCH (21:09)
[2016-09-01] MEDS: OLANZapine 10 MG TABLET PO SCH (21:09)
[2016-09-01] MEDS: THIAMINE HCL 100 MG TABLET (FP) PO SCH (21:10)
[2016-09-02] MEDS: AMITRIPTYLINE HCL 25 MG TABLET (FP) PO SCH ×3 (06:11→21:04)
[2016-09-02] MEDS: GABAPENTIN 400 MG CAPSULE (FP) PO SCH ×3 (06:11→21:05)
[2016-09-02] MEDS: AMOXICILLIN 500 MG CAPSULE (FP) PO SCH ×3 (06:11→21:04)
[2016-09-02] MEDS: IBUPROFEN 600 MG TABLET (FP) PO PRN ×2 (09:05→17:47)
[2016-09-02] MEDS: PRENATAL VITAMINS W/ FOLIC ACID TABLET (FP) PO SCH (09:06)
[2016-09-02] MEDS: FERROUS SO4 325 MG TABLET (FP) PO SCH (09:07)
[2016-09-02] MEDS: DOCUSATE SODIUM 100 MG CAPSULE (FP) PO SCH ×2 (09:07→21:04)
[2016-09-02] MEDS: risperiDONE 2 MG TABLET PO SCH ×2 (09:07→21:05)
[2016-09-02] MEDS: amLODIPine BESYLATE 5 MG TABLET (FP) PO SCH (09:07)
[2016-09-02] MEDS: RANITIDINE HCL 150 MG TABLET (FP) PO SCH ×2 (09:07→21:05)
[2016-09-02] MEDS: LIDOCAINE 5% TOPICAL PATCH TP SCH (09:08)
[2016-09-02] MEDS: NICOTINE 14 MG/24 HOURS TOPICAL PATCH TD SCH (09:08)
[2016-09-02] MEDS: diphenhydrAMINE HCL 50 MG CAPSULE PO PRN (21:04)
[2016-09-02] MEDS: traZODone HCL 100 MG TABLET (FP) PO SCH (21:04)
[2016-09-02] MEDS: OLANZapine 10 MG TABLET PO SCH (21:05)
[2016-09-02] MEDS: THIAMINE HCL 100 MG TABLET (FP) PO SCH (21:05)
[2016-09-02] MEDS: MIRTAZAPINE 30 MG TABLET (FP) PO SCH (21:05)
[2016-09-03] MEDS: GABAPENTIN 400 MG CAPSULE (FP) PO SCH ×3 (06:17→21:05)
[2016-09-03] MEDS: AMOXICILLIN 500 MG CAPSULE (FP) PO SCH ×2 (06:17→13:07)
[2016-09-03] MEDS: AMITRIPTYLINE HCL 25 MG TABLET (FP) PO SCH ×3 (06:17→21:05)
[2016-09-03] MEDS: FERROUS SO4 325 MG TABLET (FP) PO SCH (10:00)
[2016-09-03] MEDS: PRENATAL VITAMINS W/ FOLIC ACID TABLET (FP) PO SCH (10:00)
[2016-09-03] MEDS: amLODIPine BESYLATE 5 MG TABLET (FP) PO SCH (10:00)
[2016-09-03] MEDS: DOCUSATE SODIUM 100 MG CAPSULE (FP) PO SCH ×2 (10:01→21:05)
[2016-09-03] MEDS: NICOTINE 14 MG/24 HOURS TOPICAL PATCH TD SCH (10:01)
[2016-09-03] MEDS: LIDOCAINE 5% TOPICAL PATCH TP SCH (10:01)
[2016-09-03] MEDS: risperiDONE 2 MG TABLET PO SCH ×2 (10:11→21:05)
[2016-09-03] MEDS: RANITIDINE HCL 150 MG TABLET (FP) PO SCH ×2 (10:11→21:05)
[2016-09-03] MEDS: COLLOIDAL OATMEAL 1 BAR EACH TP PRN (15:31)
[2016-09-03] MEDS: diphenhydrAMINE HCL 50 MG CAPSULE PO PRN (21:05)
[2016-09-03] MEDS: traZODone HCL 100 MG TABLET (FP) PO SCH (21:05)
[2016-09-03] MEDS: MIRTAZAPINE 30 MG TABLET (FP) PO SCH (21:05)
[2016-09-03] MEDS: OLANZapine 10 MG TABLET PO SCH (21:05)
[2016-09-03] MEDS: THIAMINE HCL 100 MG TABLET (FP) PO SCH (21:05)
[2016-09-04] MEDS: AMITRIPTYLINE HCL 25 MG TABLET (FP) PO SCH ×3 (06:07→21:07)
[2016-09-04] MEDS: GABAPENTIN 400 MG CAPSULE (FP) PO SCH ×3 (06:07→21:06)
[2016-09-04] MEDS: PRENATAL VITAMINS W/ FOLIC ACID TABLET (FP) PO SCH (09:58)
[2016-09-04] MEDS: NICOTINE 14 MG/24 HOURS TOPICAL PATCH TD SCH (09:58)
[2016-09-04] MEDS: amLODIPine BESYLATE 5 MG TABLET (FP) PO SCH (09:58)
[2016-09-04] MEDS: RANITIDINE HCL 150 MG TABLET (FP) PO SCH ×2 (09:58→21:07)
[2016-09-04] MEDS: FERROUS SO4 325 MG TABLET (FP) PO SCH (09:59)
[2016-09-04] MEDS: DOCUSATE SODIUM 100 MG CAPSULE (FP) PO SCH ×2 (09:59→21:07)
[2016-09-04] MEDS: LIDOCAINE 5% TOPICAL PATCH TP SCH (09:59)
[2016-09-04] MEDS: risperiDONE 2 MG TABLET PO SCH ×2 (09:59→21:07)
[2016-09-04] MEDS: OLANZapine 10 MG TABLET PO SCH (21:06)
[2016-09-04] MEDS: diphenhydrAMINE HCL 50 MG CAPSULE PO PRN (21:07)
[2016-09-04] MEDS: traZODone HCL 100 MG TABLET (FP) PO SCH (21:07)
[2016-09-04] MEDS: MIRTAZAPINE 30 MG TABLET (FP) PO SCH (21:07)
[2016-09-04] MEDS: THIAMINE HCL 100 MG TABLET (FP) PO SCH (21:07)
[2016-09-05] MEDS: AMITRIPTYLINE HCL 25 MG TABLET (FP) PO SCH ×3 (06:05→21:11)
[2016-09-05] MEDS: GABAPENTIN 400 MG CAPSULE (FP) PO SCH ×3 (06:05→21:11)
[2016-09-05] MEDS: risperiDONE 2 MG TABLET PO SCH ×2 (10:17→21:11)
[2016-09-05] MEDS: LIDOCAINE 5% TOPICAL PATCH TP SCH (10:17)
[2016-09-05] MEDS: PRENATAL VITAMINS W/ FOLIC ACID TABLET (FP) PO SCH (10:17)
[2016-09-05] MEDS: FERROUS SO4 325 MG TABLET (FP) PO SCH (10:17)
[2016-09-05] MEDS: NICOTINE 14 MG/24 HOURS TOPICAL PATCH TD SCH (10:17)
[2016-09-05] MEDS: amLODIPine BESYLATE 5 MG TABLET (FP) PO SCH (10:17)
[2016-09-05] MEDS: DOCUSATE SODIUM 100 MG CAPSULE (FP) PO SCH ×2 (10:17→21:10)
[2016-09-05] MEDS: RANITIDINE HCL 150 MG TABLET (FP) PO SCH ×2 (10:17→21:10)
[2016-09-05] MEDS: OLANZapine 10 MG TABLET PO SCH (21:10)
[2016-09-05] MEDS: MIRTAZAPINE 30 MG TABLET (FP) PO SCH (21:11)
[2016-09-05] MEDS: THIAMINE HCL 100 MG TABLET (FP) PO SCH (21:11)
[2016-09-05] MEDS: traZODone HCL 100 MG TABLET (FP) PO SCH (21:11)
[2016-09-06] MEDS: GABAPENTIN 400 MG CAPSULE (FP) PO SCH ×3 (06:03→21:06)
[2016-09-06] MEDS: AMITRIPTYLINE HCL 25 MG TABLET (FP) PO SCH ×3 (06:04→21:06)
[2016-09-06] MEDS: PRENATAL VITAMINS W/ FOLIC ACID TABLET (FP) PO SCH (09:54)
[2016-09-06] MEDS: FERROUS SO4 325 MG TABLET (FP) PO SCH (09:54)
[2016-09-06] MEDS: LIDOCAINE 5% TOPICAL PATCH TP SCH (09:54)
[2016-09-06] MEDS: RANITIDINE HCL 150 MG TABLET (FP) PO SCH ×2 (09:54→21:06)
[2016-09-06] MEDS: NICOTINE 14 MG/24 HOURS TOPICAL PATCH TD SCH (09:54)
[2016-09-06] MEDS: amLODIPine BESYLATE 5 MG TABLET (FP) PO SCH (09:54)
[2016-09-06] MEDS: DOCUSATE SODIUM 100 MG CAPSULE (FP) PO SCH ×2 (09:54→21:06)
[2016-09-06] MEDS: risperiDONE 2 MG TABLET PO SCH ×2 (09:54→21:06)
[2016-09-06] MEDS: traZODone HCL 100 MG TABLET (FP) PO SCH (21:06)
[2016-09-06] MEDS: THIAMINE HCL 100 MG TABLET (FP) PO SCH (21:06)
[2016-09-06] MEDS: OLANZapine 10 MG TABLET PO SCH (21:07)
[2016-09-06] MEDS: MIRTAZAPINE 30 MG TABLET (FP) PO SCH (21:07)
[2016-09-07] MEDS: AMITRIPTYLINE HCL 25 MG TABLET (FP) PO SCH ×3 (06:02→21:05)
[2016-09-07] MEDS: GABAPENTIN 400 MG CAPSULE (FP) PO SCH ×3 (06:03→21:04)
[2016-09-07] MEDS: amLODIPine BESYLATE 5 MG TABLET (FP) PO SCH (09:37)
[2016-09-07] MEDS: NICOTINE 14 MG/24 HOURS TOPICAL PATCH TD SCH (09:37)
[2016-09-07] MEDS: risperiDONE 2 MG TABLET PO SCH ×2 (09:37→21:05)
[2016-09-07] MEDS: RANITIDINE HCL 150 MG TABLET (FP) PO SCH ×2 (09:37→21:05)
[2016-09-07] MEDS: FERROUS SO4 325 MG TABLET (FP) PO SCH (09:37)
[2016-09-07] MEDS: DOCUSATE SODIUM 100 MG CAPSULE (FP) PO SCH ×2 (09:37→21:04)
[2016-09-07] MEDS: PRENATAL VITAMINS W/ FOLIC ACID TABLET (FP) PO SCH (09:37)
[2016-09-07] MEDS: LIDOCAINE 5% TOPICAL PATCH TP SCH (09:38)
[2016-09-07] MEDS: THIAMINE HCL 100 MG TABLET (FP) PO SCH (21:04)
[2016-09-07] MEDS: OLANZapine 10 MG TABLET PO SCH (21:04)
[2016-09-07] MEDS: traZODone HCL 100 MG TABLET (FP) PO SCH (21:04)
[2016-09-07] MEDS: MIRTAZAPINE 30 MG TABLET (FP) PO SCH (21:05)
[2016-09-08] MEDS: GABAPENTIN 400 MG CAPSULE (FP) PO SCH (06:02)
[2016-09-08] MEDS: AMITRIPTYLINE HCL 25 MG TABLET (FP) PO SCH (06:02)
[2016-09-08 07:01] VITALS: BP 130/82; PULSE 112; TEMP 98.1
[2016-09-08] MEDS: PRENATAL VITAMINS W/ FOLIC ACID TABLET (FP) PO SCH (09:04)
[2016-09-08] MEDS: amLODIPine BESYLATE 5 MG TABLET (FP) PO SCH (09:04)
[2016-09-08] MEDS: RANITIDINE HCL 150 MG TABLET (FP) PO SCH (09:04)
[2016-09-08] MEDS: FERROUS SO4 325 MG TABLET (FP) PO SCH (09:04)
[2016-09-08] MEDS: NICOTINE 14 MG/24 HOURS TOPICAL PATCH TD SCH (09:04)
[2016-09-08] MEDS: risperiDONE 2 MG TABLET PO SCH (09:04)
[2016-09-08] MEDS: DOCUSATE SODIUM 100 MG CAPSULE (FP) PO SCH (09:04)
[2016-09-08] MEDS: LIDOCAINE 5% TOPICAL PATCH TP SCH (09:04)
--- NOTE | 2016-09-08 09:41 | PN ---
[id number] 112 130/82 Date of Session: 09/08/16 Chief Complaint:: Discharge visit HPI: Patient addressed Alcohol and Cocaine dependence comorbid with Bipolar disorder. ROS: Significant for Anemia,GERD,HTN. Current Side Effect: No Lab tests ordered: No Lab tests reviewed: Yes Provider note:: Patient completed this program today.She has met her treatment goals and will continue to address her issues on outpatient basis.Patient continues to find that Zyprexa 10 mg po hs ,Remeron 30 mg po hs,TRazodone 100 mg po hs and Amitriptillin 25 mg po tid help to reduce mood instability, depression,anxiety,sleeping difficulties.Scripts for 30 days supply provided. Therapy provided focusing on coping skills ,support utilization to maintain recovery.. Patient is stable for discharge today. Total face to face time:: 30 Mental Status Exam - Mental Status Exam Alert and Oriented to: Time, Place, Person Cognitive Function: Grossly Intact Patient Appearance: Well Groomed Mood: Euthymic Affect: Mood Congruent Patient Behavior: Cooperative Speech Pattern: Clear Voice Loudness: Normal Thought Process: Goal Oriented Thought Disorder: Not Present Hallucinations: Denies Suicidal Ideation: Denies Homicidal Ideation: Denies Insight/Judgement: Fair Sleep: Fair Appetite: Fair Muscle strength/Tone: Normal Gait/Station: Normal Psychiatric Treatment Plan - Problem List (3) Anemia Qualifiers: (4) Bipolar disorder Qualifiers: (5) GERD (gastroesophageal reflux disease) Qualifiers: (6) Hypertension Qualifiers:
== END 2016-09-08 09:20 | disposition home or self-care (01) | DRG 772 ==
LOC: YASAS 11:15 → Y3E 11:16
PROVIDERS: ADMIT Psychiatry & Neurology Psychiatry; ATTEND Psychiatry & Neurology Psychiatry
PROC: HZ42ZZZ Group Counseling for Substance Abuse Treatment, Cognitive-Behavioral (ICD-10-PCS; principal; 2016-09-08)
DX: F10.230 Alcohol dependence with withdrawal, uncomplicated (principal); F14.20 Cocaine dependence, uncomplicated; F31.9 Bipolar disorder, unspecified; I10 Essential (primary) hypertension; K21.9 Gastro-esophageal reflux disease without esophagitis; D64.9 Anemia, unspecified

== ENCOUNTER 2018-07-12 09:48 | Inpatient (IN) | payer BC ==
[2018-07-12 10:43] VITALS: BMI 23.1
--- NOTE | 2018-07-12 12:42 | HP ---
CIWA Score Nausea/Vomitin-No Nausea/No Vomiting Muscle Tremors: 1-None Visible, but [place] Anxiety: 3 Agitation: 4-Moderately Restless Paroxysmal Sweats: No Perspiration Orientation: 2-Disoriented Date<2 days Tacttile Disturbances: 2-Mild Itch/Numbness/Burn Auditory Disturbances: 2-Mild Harshness/Frighten Visual Disturbances: 0-None Headache: 0-None Present CIWA-Ar Total Score: 14 - Admission Criteria [facility] Guidelines: Admission for Medically Managed Detox: Requires at least one of the followin. CIWA greater than 12 2. Seizures within the past 24 hours 3. Delirium tremens within the past 24 hours 4. Hallucinations within the past 24 hours 5. Acute intervention needed for co occurring medical disorder 6. Acute intervention needed for co occurring psychiatric disorder 7. Severe withdrawal that cannot be handled at a lower level of care (continued vomiting, continued diarrhea, abnormal vital signs) requiring intravenous medication and/or fluids 8. Admission ROS [facility] - [facility] Chief Complaint: ETOH WITHDRAWAL SX AND COCAINE DEPENDENCE. Allergies/Adverse Reactions: Allergies Allergy/AdvReac Type Severity Reaction Status Date / Time acetaminophen Allergy Verified 07/12/18 12:09 shellfish derived Allergy Verified 07/12/18 12:09 History of Present Illness: PATIENT PRESENTS WITH ETOH WITHDRAWAL SX AND COCAINE DEPENDENCE. PATIENT STARTED DRINKING AT AGE 15, DRINKS 1/5 OF LIQUOR DAILY. LAST DRINK THIS MORNING. + BINGE DRINKER, ETOH WITHDRAWAL SEIZURES (LAST 3 YEARS AGO) AND +EYE CRAB BUTCHER. LAST DETOX AT [facility] 1 MONTH AGO. PATIENT ALSO SMOKES CRACK/COCAINE, AMOUNT VARIES. LAST TIME SHE USED WAS LAST NIGHT. PMH INCLUDES BIPOLAR DISORDER , LIVER CIRRHOSIS, HTN, ASTHMA AND SEIZURES. DENIES SI/HI AND SUICIDE ATTEMPTS. Exam Limitations: No Limitations - Ebola screening Have you traveled outside of the country in the last 21 days: No (N) Have you had contact with anyone from an Ebola affected area: No Have you been sick,other than usual withdrawal symptoms: No Do you have a fever: No - Review of Systems Constitutional: Chills, Changes in sleep, Unintentional Wgt. Loss EENT: reports: Blurred Vision (SYMPTOMS X MONTHS), Recent change in vision Respiratory: reports: Cough (DRY COUGH) Cardiac: reports: No Symptoms Reported GI: reports: Poor Fluid Intake : reports: No Symptoms Reported Musculoskeletal: reports: Back Pain, Muscle Pain Integumentary: reports: No Symptoms Reported Neuro: reports: Numbness, Seizure, Tingling, Tremors Endocrine: reports: Unexplained Weight Loss Hematology: reports: No Symptoms Reported Psychiatric: reports: Anxious (FORGETFUL WITH DATE, REPORTS 07/09/18 DATE), Depressed Patient History - Patient Medical History Hx Anemia: Yes (iron) Hx Asthma: Yes Hx Chronic Obstructive Pulmonary Disease (COPD): Yes Hx Cancer: No Hx Cardiac Disorders: No Hx Congestive Heart Failure: No Hx Hypertension: Yes Hx Hypercholesterolemia: No Hx Pacemaker: No HX Cerebrovascular Accident: No Hx Seizures: Yes (2014) Hx Dementia: No Hx Diabetes: No Hx Gastrointestinal Disorders: Yes (GERD) Hx Liver Disease: No Hx Genitourinary Disorders: No Hx Sexually Transmitted Disorders: No Hx Renal Disease (ESRD): No Hx Thyroid Disease: No Hx Human Immunodeficiency Virus (HIV): No (REFUSED TEST SHE WAS TESTED ONE MONTH AGO AND NEGATIVE) Hx Hepatitis C: No Hx Depression: No Hx Suicide Attempt: No Hx Bipolar Disorder: Yes Hx Schizophrenia: No - Patient Surgical History Past Surgical History: Yes Hx Neurologic Surgery: No Hx Cataract Extraction: No Hx Cardiac Surgery: No Hx Lung Surgery: No Hx Breast Surgery: No Hx Breast Biopsy: No Hx Abdominal Surgery: No Hx Appendectomy: No Hx Cholecystectomy: No Hx Genitourinary Surgery: No Hx Section: Yes (1997) Hx Orthopedic Surgery: Yes (2015 right knee, 2012 left neck) Hx Hysterectomy: No Anesthesia Reaction: No - PPD History Previous Implant?: Yes Documented Results: Negative w/proof Implanted On Prior [facility] Admission?: Yes Date: 01/09/16 Results: NEGATIVE - Reproductive History Last Menstrual Period: 01/07/16 Patient : Yes - Smoking Cessation Smoking history: Current every day smoker Have you smoked in the past 12 months: Yes Aproximately how many cigarettes per day: 20 Hx Chewing Tobacco Use: No Initiated information on smoking cessation: Yes 'Breaking Loose' booklet given: 07/12/18 - Substance & Tx. History Hx Alcohol Use: Yes Hx Substance Use: Yes Substance Use Type: Alcohol, Cocaine Hx Substance Use Treatment: Yes (LAST [facility] ONE MONTH AGO) - Substances Abused Alcohol Route: Oral Frequency: Daily Amount used: / VODKA, 3 CANS OF 24 ONCES BEER Age of first use: 15 Date of Last Use: 07/12/18 Cocaine Route: Smoking Frequency: 3-6 times per week Amount used: $20 Age of first use: 23 Date of Last Use: 07/11/18 Family Disease History - Family Disease History Family Disease History: Diabetes: Grandparent, Heart Disease: Mother ( CANCER), CA: Father (, etoh), Mother, Other: Father, Mother, Brother ( etoh), Sister ( due to alcohol) Admission Physical Exam S - Vital Signs Vital Signs: Vital Signs - 24 hr 07/12/18 10:40 Temperature 96 F L Pulse Rate 87 Respiratory 18 Rate Blood Pressure 150/92 - Physical General Appearance: Yes: No Apparent Distress, Appropriately Dressed, Alcohol on Breath, Tremorous, Anxious HEENTM: Yes: EOMI, Hearing grossly Normal, Normal ENT Inspection, Normocephalic , Normal Voice, FLO, Pharynx Normal, Scleral Ictenus R, Scleral Ictenus L Respiratory: Yes: Chest Non-Tender, Lungs Clear, Normal Breath Sounds, No Respiratory Distress, No Accessory Muscle Use Neck: Yes: No masses,lesions,Nodules, Supple Breast: Yes: Breast Exam Deferred Cardiology: Yes: Regular Rhythm, Regular Rate, S1, S2 Abdominal: Yes: Normal Bowel Sounds, Soft Genitourinary: Yes: Within Normal Limits Back: Yes: Muscle Spasm Musculoskeletal: Yes: full range of Motion, Gait Steady, Back pain, Muscle Pain Extremities: Yes: Normal Inspection, Normal Range of Motion, Tremors, Other ( DRY SKIN) Neurological: Yes: contact lens polisher II-XII NML intact, Fully Oriented, Alert, Motor Strength 5/5, Normal Response, Depressed Affect Integumentary: Yes: Normal Color, Dry, Warm Lymphatic: Yes: Within Normal Limits - Diagnostic (1) Cirrhosis Current Visit: Yes Status: Suspected Qualifiers: Ascites presence: unspecified (2) Alcohol dependence with uncomplicated withdrawal Current Visit: Yes Status: Acute (3) Bipolar disorder Current Visit: Yes Status: Chronic Qualifiers: Current episode severity: unspecified (4) Cocaine abuse Current Visit: Yes Status: Chronic (5) Hypertension Current Visit: Yes Status: Chronic Qualifiers: Hypertension type: essential hypertension (6) Insomnia Current Visit: Yes Status: Chronic Qualifiers: Insomnia type: primary Qualified Code(s): F51.01 - Primary insomnia (7) Nicotine dependence Current Visit: Yes Status: Chronic Qualifiers: Nicotine product type: cigarettes Substance use status: uncomplicated Qualified Code(s): F17.210 - Nicotine dependence, cigarettes, uncomplicated Cleared for Admission [facility] - Detox or Rehab [facility] Level of Care: Medically Managed Detox Regimen/Protocol: Librium [facility] Breath Alcohol Content Breath Alcohol Content: 0.177 Urine Pregancy Test - Result Urine Test Results: Negative- NO Line Present Urine Drug Screen - Results Drug Screen Negative: No Urine Drug Screen Results: MARIBEL-Cocaine
[2018-07-12] MEDS ORDERED: MAG HYDROX/AL HYDROX/SIMETH 30 ML UNIT-DOSE CUP PO PRN (12:54)
[2018-07-12] MEDS ORDERED: MAGNESIUM CITRATE 300 ML BOTTLE PO PRN (12:54)
[2018-07-12] MEDS ORDERED: IBUPROFEN 400 MG TABLET (FP) PO PRN (12:54)
[2018-07-12] MEDS ORDERED: NICOTINE POLACRILEX 2 MG GUM BUC PRN (12:54)
[2018-07-12] MEDS ORDERED: LOPERAMIDE HCL 2 MG CAPSULE PO PRN (12:54)
[2018-07-12] MEDS ORDERED: P-EPHED 60MG/TRIPROLIDI 2.5MG TABLET PO PRN (12:54)
[2018-07-12] MEDS ORDERED: ACETAMINOPHEN 325 MG TABLET (FP) PO PRN (12:54)
[2018-07-12] MEDS ORDERED: MAGNESIUM HYDROX 2400MG/30ML ORAL SUSPENSION 30 ML CUP PO PRN (12:54)
[2018-07-12] MEDS ORDERED: MENTHOL/PHENOL 1 EACH UD MM PRN (12:54)
[2018-07-12] MEDS ORDERED: guaiFENesin/D-METHORPHAN HB 10 ML UNIT-DOSE CUPS PO PRN (12:54)
[2018-07-12] MEDS ORDERED: hydrOXYzine PAMOATE 50 MG CAPSULE (FP) PO PRN (12:54)
[2018-07-12] MEDS ORDERED: ALBUTEROL SO4 8 GM HFA INHALER IH PRN (12:57)
[2018-07-12] MEDS: amLODIPine BESYLATE 5 MG TABLET (FP) PO SCH (15:59)
[2018-07-12] MEDS: LORazepam 2 MG TABLET PO SCH ×2 (16:00→19:27)
[2018-07-12] MEDS ORDERED: MELATONIN 5 MG TABLETS PO PRN (22:00)
[2018-07-12] MEDS: THIAMINE HCL 100 MG TABLET (FP) PO SCH (22:22)
[2018-07-12 23:08] LABS: URINE APPEARANCE SLCLOUDY; URINE BILIRUBIN NEGATIVE (<2.0 mg/dL); URINE COLOR AMBER; URINE GLUCOSE (UA) NEGATIVE (NEGATIVE); URINE KETONE NEGATIVE (NEGATIVE); URINE LEUK ESTERASE NEGATIVE (NEGATIVE); URINE NITRITE NEGATIVE (NEGATIVE); URINE PROTEIN NEGATIVE (NEGATIVE); URINE UROBILINOGEN 4.0 E.U/dl mg/dL (0.2-1.0)
[2018-07-13] MEDS: LORazepam 2 MG TABLET PO SCH ×2 (03:00→08:35)
--- NOTE | 2018-07-13 10:27 | PN ---
S CIWA - CIWA Score Nausea/Vomitin-No Nausea/No Vomiting Muscle Tremors: 3 Anxiety: 3 Agitation: 3 Paroxysmal Sweats: 3 Orientation: 0-Oriented Tacttile Disturbances: 0-None Auditory Disturbances: 0-None Visual Disturbances: 0-None Headache: 0-None Present CIWA-Ar Total Score: 12 S Progress Note (SOAP) Subjective: agitation sweats shakes interrupted sleep Objective: 07/13/18 10:26 Vital Signs Temperature 99.1 F 07/13/18 09:56 Pulse Rate 89 07/13/18 09:56 Respiratory Rate 18 07/13/18 09:56 Blood Pressure 149/81 07/13/18 09:56 O2 Sat by Pulse Oximetry (%) Laboratory Tests 07/12/18 22:30 Urine Color [place]via Urine Appearance Slcloudy Urine pH 6.0 Ur Specific [place] 1.018 Urine Protein Negative Urine Glucose (UA) Negative Urine Ketones Negative Urine Blood Negative Urine Nitrite Negative Urine Bilirubin Negative Urine Urobilinogen 4.0 e.u/dl H Ur Leukocyte Esterase Negative labs pending [id number] ambulating no acute distress Assessment: 07/13/18 10:27 withdrawal sx Plan: continue detox increase fluids labs pending
[2018-07-13] MEDS: amLODIPine BESYLATE 5 MG TABLET (FP) PO SCH (10:52)
[2018-07-13] MEDS: PRENATAL VITAMINS W/ FOLIC ACID TABLET (FP) PO SCH (10:52)
[2018-07-13 11:05] LABS: HEMATOCRIT 31.1 % (32.4-45.2); HEMOGLOBIN 10.1 GM/dL (10.7-15.3); MCH 30.9 pg (25.7-33.7); MCHC 32.6 g/dl (32.0-36.0); MEAN CELL VOLUME 94.9 fl (80-96); MEAN PLT VOLUME 8.1 fl (7.5-11.1); PLATELET COUNT 95 K/MM3 (134-434); RBC 3.28 M/mm3 (3.60-5.2); WHITE BLOOD COUNT 5.1 K/mm3 (4.0-10.0)
[2018-07-13 11:09] LABS: ALBUMIN 3.4 g/dl (3.4-5.0); ALK PHOS 181 U/L (45-117); ANION GAP 10 MMOL/L (8-16); BLOOD UREA NITROGEN 7 mg/dL (7-18); CALCIUM 8.5 mg/dL (8.5-10.1); CHLORIDE 99 mmol/L (98-107); CO2 26 mmol/L (21-32); CREATININE 0.6 mg/dL (0.55-1.3); GLUCOSE,RANDOM 94 mg/dL (74-106); POTASSIUM 3.4 mmol/L (3.5-5.1); SGOT/AST 100 U/L (15-37); SGPT/ALT 34 U/L (13-61); SODIUM 135 mmol/L (136-145); TOT PROT 8.2 g/dl (6.4-8.2)
[2018-07-13] MEDS: LORazepam 1 MG TABLET PO SCH ×3 (11:27→23:13)
[2018-07-13] MEDS: POTASSIUM CHLORIDE TABS 20 MEQ TABLET.ER (FP) PO SCH (12:40)
--- NOTE | 2018-07-13 12:44 | PN ---
[facility] Progress Note Note: potassium level 3.4; kdur 20meq x 4 days
--- NOTE | 2018-07-13 13:26 | CONSULT ---
[facility] Psychiatric Consult - Data Date of interview: 07/13/18 Admission source: [facility] Identifying data: Patient is a 43 year old single female, mother of three, unemployed, and currently homeless. This is one of multiple admissions for patient. Patient admitted to for alcohol and cocaine dependence. Substance Abuse History: - Smoking Cessation. Smoking history: Current every day smoker. Have you smoked in the past 12 months: Yes. Aproximately how many cigarettes per day: 20. Hx Chewing Tobacco Use: No. Initiated information on smoking cessation: Yes. 'Breaking Loose' booklet given: 07/12/18. - Substance & Tx. History. Hx Alcohol Use: Yes. Hx Substance Use: Yes. Substance Use Type : Alcohol, Cocaine. Hx Substance Use Treatment: Yes (LAST [facility] ONE MONTH AGO). - Substances Abused. Alcohol. Route: Oral. Frequency: Daily. Amount used : 1/5TH VODKA, 3 CANS OF 24 ONCES BEER. Age of first use: 15. Date of Last Use : 07/12/18. Cocaine. Route: Smoking. Frequency: 3-6 times per week. Amount used: $20. Age of first use: 23. Date of Last Use: 07/11/18 Psychiatric History: Patient presents as lethargic and fatigue. Ms. Calixto reports multiple psychiatric hospitalizations, most recently in April of 2018 at [facility]. She denies current outpatient psychiatric care. States she last took medications one year ago?? (said she was admitted on a psychiatric unit on 05/09). Patient unable to provide a clear cohesive psychiatric history. Patient falling asleep and needing to be awaken several times throughout interview. She denies thoughts to hurt herself or others. Physical/Sexual Abuse/Trauma History: denies. Mental Status Exam - Mental Status Exam Alert and Oriented to: Time, Place, Person Cognitive Function: Fair Patient Appearance: Disheveled Mood: Withdrawn Affect: Mood Congruent Patient Behavior: Sedated, Fatigued, Asleep (Patient needing to be awaken several times througout assessment.) Speech Pattern: Delayed Voice Loudness: Moderately Soft/Quiet Thought Process: Goal Oriented Thought Disorder: Not Present Hallucinations: Denies Suicidal Ideation: Denies Homicidal Ideation: Denies Insight/Judgement: Poor Sleep: Fair Appetite: Fair Muscle strength/Tone: Normal Gait/Station: Other (Did not observe patient's gait.) Psychiatric Findings - Problem List ([place] 1, 2,3) (1) Alcohol dependence with uncomplicated withdrawal Current Visit: Yes Status: Acute (2) Nicotine dependence Current Visit: Yes Status: Chronic Qualifiers: Nicotine product type: cigarettes Substance use status: uncomplicated Qualified Code(s): F17.210 - Nicotine dependence, cigarettes, uncomplicated (3) Substance induced mood disorder Current Visit: Yes Status: Suspected (4) Bipolar disorder Current Visit: No Status: Chronic Qualifiers: Current episode severity: unspecified Comment: As per history. - Initial Treatment Plan Initial Treatment Plan: Psychoeducation provided. Detoxification in progress. No medications will be ordered as patient is lethargic,fatigue, and unable to remain awake throughout assessment. Observation.
--- NOTE | 2018-07-13 17:01 | EKG ---
Test Reason : Blood Pressure : / mmHG Vent. Rate : 078 BPM Atrial Rate : 078 BPM P-R Int : 000 ms QRS Dur : 090 ms QT Int : 422 ms P-R-T Axes : 082 032 006 degrees QTc Int : 481 ms SINUS RHYTHM WITH PREMATURE ATRIAL COMPLEXES RSR' OR QR PATTERN IN V1 SUGGESTS RIGHT VENTRICULAR CONDUCTION DELAY NONSPECIFIC T WAVE ABNORMALITY PROLONGED QT ABNORMAL ECG Confirmed by MD MING, PILAR ([id number]) on 07/13/2018 5:01:13 PM Referred By: Confirmed By:PILAR LAI MD
[2018-07-13] MEDS: THIAMINE HCL 100 MG TABLET (FP) PO SCH (22:22)
[2018-07-14] MEDS: LORazepam 1 MG TABLET PO SCH ×4 (06:54→23:07)
[2018-07-14] MEDS: PRENATAL VITAMINS W/ FOLIC ACID TABLET (FP) PO SCH (10:31)
[2018-07-14] MEDS: amLODIPine BESYLATE 5 MG TABLET (FP) PO SCH (10:31)
[2018-07-14] MEDS: POTASSIUM CHLORIDE TABS 20 MEQ TABLET.ER (FP) PO SCH (10:31)
--- NOTE | 2018-07-14 10:47 | PN ---
[facility] CIWA - CIWA Score Nausea/Vomitin-No Nausea/No Vomiting Muscle Tremors: 3 Anxiety: 3 Agitation: 3 Paroxysmal Sweats: 2 Orientation: 0-Oriented Tacttile Disturbances: 0-None Auditory Disturbances: 0-None Visual Disturbances: 0-None Headache: 0-None Present CIWA-Ar Total Score: 11 S Progress Note (SOAP) Subjective: shakes sweats body aches tired Objective: 07/14/18 10:46 Vital Signs Temperature 98.1 F 07/14/18 09:28 Pulse Rate 96 H 07/14/18 09:28 Respiratory Rate 16 07/14/18 09:28 Blood Pressure 141/96 07/14/18 09:28 O2 Sat by Pulse Oximetry (%) Laboratory Tests 07/12/18 07/13/18 07/13/18 22:30 07:00 07:00 WBC 5.1 RBC 3.28 L Hgb 10.1 L Hct 31.1 L MCV 94.9 MCH 30.9 MCHC 32.6 RDW 29.0 H Plt Count 95 L D MPV 8.1 D Sodium 135 L Potassium 3.4 L Chloride 99 Carbon Dioxide 26 Anion Gap 10 BUN 7 Creatinine 0.6 Creat Clearance w eGFR > 60 Random Glucose 94 Calcium 8.5 Total Bilirubin 2.0 H AST 100 H ALT 34 Alkaline Phosphatase 181 H Total Protein 8.2 Albumin 3.4 Urine Color Sylvia Urine Appearance Slcloudy Urine pH 6.0 Ur Specific [place] 1.018 Urine Protein Negative Urine Glucose (UA) Negative Urine Ketones Negative Urine Blood Negative Urine Nitrite Negative Urine Bilirubin Negative Urine Urobilinogen 4.0 e.u/dl H Ur Leukocyte Esterase Negative RPR Titer 07/13/18 07:00 WBC RBC Hgb Hct MCV MCH MCHC RDW Plt Count MPV Sodium Potassium Chloride Carbon Dioxide Anion Gap BUN Creatinine Creat Clearance w eGFR Random Glucose Calcium Total Bilirubin AST ALT Alkaline Phosphatase Total Protein Albumin Urine Color Urine Appearance Urine pH Ur Specific [place] Urine Protein Urine Glucose (UA) Urine Ketones Urine Blood Urine Nitrite Urine Bilirubin Urine Urobilinogen Ur Leukocyte Esterase RPR Titer Nonreactive aaox3 ambulating no acute distress Assessment: 07/14/18 10:47 withdrawal sx Plan: continue detox increase fluids
--- NOTE | 2018-07-14 12:45 | EKG ---
Test Reason : Blood Pressure : / mmHG Vent. Rate : 094 BPM Atrial Rate : 094 BPM P-R Int : 134 ms QRS Dur : 084 ms QT Int : 358 ms P-R-T Axes : 018 038 -55 degrees QTc Int : 447 ms SINUS RHYTHM WITH PREMATURE ATRIAL COMPLEXES T WAVE ABNORMALITY, CONSIDER INFERIOR ISCHEMIA MARKED T WAVE ABNORMALITY, CONSIDER ANTERIOR ISCHEMIA ABNORMAL ECG WHEN COMPARED WITH ECG OF 12-JUL-2018 15:46, T WAVE INVERSION NOW EVIDENT IN INFERIOR LEADS Confirmed by VANESSA DINH, JUAN ([id number]) on 07/14/2018 12:45:01 PM Referred By: Confirmed By:JUAN MENDEZ MD
[2018-07-14] MEDS: THIAMINE HCL 100 MG TABLET (FP) PO SCH (22:32)
[2018-07-15] MEDS: LORazepam 1 MG TABLET PO PRN ×2 (00:19→10:08)
[2018-07-15] MEDS ORDERED: LORazepam 2 MG TABLET PO SCH (06:00)
[2018-07-15] MEDS: LORazepam 1 MG TABLET PO SCH (06:11)
[2018-07-15] MEDS: PRENATAL VITAMINS W/ FOLIC ACID TABLET (FP) PO SCH (10:08)
[2018-07-15] MEDS: amLODIPine BESYLATE 5 MG TABLET (FP) PO SCH (10:08)
[2018-07-15] MEDS: POTASSIUM CHLORIDE TABS 20 MEQ TABLET.ER (FP) PO SCH (10:08)
--- NOTE | 2018-07-15 11:24 | PN ---
[facility] Progress Note (SOAP) Subjective: headache interrupted sleep Objective: 07/15/18 11:23 Vital Signs Temperature 98.1 F 07/15/18 09:18 Pulse Rate 87 07/15/18 09:18 Respiratory Rate 16 07/15/18 09:18 Blood Pressure 132/96 07/15/18 09:18 O2 Sat by Pulse Oximetry (%) aaox3 ambulating no acute distress Assessment: 07/15/18 11:23 mild withdrawal sx Plan: continue detox increase fluids tylenol/motrin prn d/c in am
[2018-07-15] MEDS: THIAMINE HCL 100 MG TABLET (FP) PO SCH (22:28)
[2018-07-16] MEDS ORDERED: LORazepam 2 MG TABLET PO SCH (06:00)
[2018-07-16 06:24] VITALS: BP 111/64; PULSE 69; TEMP 97.7
--- NOTE | 2018-07-16 10:18 | DS ---
[facility] Detox Discharge Summary Admission Date: 07/12/18 Discharge Date: 07/16/18 - History Present History: Alcohol Dependence, Cocaine Dependence - Physical Exam Results Vital Signs: Vital Signs Temperature 97.7 F 07/16/18 06:00 Pulse Rate 69 07/16/18 06:00 Respiratory Rate 18 07/16/18 06:00 Blood Pressure 111/64 07/16/18 06:00 O2 Sat by Pulse Oximetry (%) - Treatment Hospital Course: Detox Protocol Followed, Detoxed Safely, Responded well, Discharged Condition Good, Rehab Referral Accepted - Medication Discharge Medications: Ambulatory Orders Ranitidine HCl [Zantac] 150 mg PO BID #60 tablet 01/31/16 Olanzapine [Zyprexa] 10 mg PO HS #30 tablet 08/11/16 traZODone HCL [Trazodone HCl] 100 mg PO HS #30 tablet 08/11/16 Amlodipine Besylate [Norvasc -] 5 mg PO DAILY #30 tablet 09/05/16 Docusate Sodium [Colace -] 100 mg PO BID #30 09/05/16 Ferrous Sulfate [Feosol] 325 mg PO DAILY #30 tablet 09/05/16 Amitriptyline HCl [Elavil -] 25 mg PO TID #90 tablet 09/07/16 Gabapentin [Neurontin -] 400 mg PO TID #90 09/07/16 Mirtazapine [Remeron -] 30 mg PO HS #30 tablet 09/07/16 Risperidone [Risperdal -] 2 mg PO BID #60 tablet 09/07/16 - AMA Did Patient Leave Against Medical Advice: No (declined rehab/going home)
== END 2018-07-16 09:30 | disposition home or self-care (01) | DRG 774 ==
LOC: YASAS 09:48 → Y6N 13:39
PROVIDERS: ADMIT Neuromusculoskeletal Medicine & OMM; ATTEND Neuromusculoskeletal Medicine & OMM
PROC: HZ2ZZZZ Detoxification Services for Substance Abuse Treatment (ICD-10-PCS; principal; 2018-07-12)
DX: F10.230 Alcohol dependence with withdrawal, uncomplicated (principal); F14.10 Cocaine abuse, uncomplicated; F17.210 Nicotine dependence, cigarettes, uncomplicated; F19.24 Other psychoactive substance dependence with psychoactive substance-induced mood disorder; F31.9 Bipolar disorder, unspecified; F51.05 Insomnia due to other mental disorder; I10 Essential (primary) hypertension; E87.6 Hypokalemia; K74.60 Unspecified cirrhosis of liver; Z86.69 Personal history of other diseases of the nervous system and sense organs
CPT/HCPCS: 36415; 80053; 81003; 85027; 86593; 93005; 93010

== ENCOUNTER 2018-08-31 12:37 | Inpatient (IN) | payer BC ==
--- NOTE | 2018-08-31 15:14 | HP ---
CIWA Score Nausea/Vomitin Muscle Tremors: 2 Anxiety: 2 Agitation: 2 Paroxysmal Sweats: 1-Minimal Palms Moist Orientation: 0-Oriented Tacttile Disturbances: 1-Very Mild Itch/Numbness Auditory Disturbances: 1-Very Mild Visual Disturbances: 0-None Headache: 2-Mild CIWA-Ar Total Score: 13 - Admission Criteria OASAS Guidelines: Admission for Medically Managed Detox: Requires at least one of the followin. CIWA greater than 12 2. Seizures within the past 24 hours 3. Delirium tremens within the past 24 hours 4. Hallucinations within the past 24 hours 5. Acute intervention needed for co occurring medical disorder 6. Acute intervention needed for co occurring psychiatric disorder 7. Severe withdrawal that cannot be handled at a lower level of care (continued vomiting, continued diarrhea, abnormal vital signs) requiring intravenous medication and/or fluids 8. Patient presents the following: CIWA greater than 12 Admission Criteria Met: Admission criteria met Admission ROS [facility] - HPI Chief Complaint: i need help to stop drinking alcohol,crack and marijuana Allergies/Adverse Reactions: Allergies Allergy/AdvReac Type Severity Reaction Status Date / Time acetaminophen Allergy Verified 08/31/18 15:23 shellfish derived Allergy Verified 08/31/18 15:23 History of Present Illness: this 43 years old female with alcohol,crack and marijuana dependence,seeking detox multiple admissions in detox but keep relapsing last detox [facility] 07/12/18 to 07/16/18 history of hypertension,non compliance anemia no med asthma,copd cirrhosis of liver borderlined dm no significant period of sobriety plan for rehab after detox - Ebola screening Have you traveled outside of the country in the last 21 days: No Have you had contact with anyone from an Ebola affected area: No - Review of Systems Constitutional: Loss of Appetite, Malaise, Night Sweats, Changes in sleep, Weakness, Unintentional Wgt. Loss EENT: reports: Nose Congestion Respiratory: reports: No Symptoms reported, Other (history of asthma,copd) Cardiac: reports: No Symptoms Reported GI: reports: Nausea, Poor Appetite, Abdominal cramping : reports: No Symptoms Reported Musculoskeletal: reports: Back Pain, Muscle Pain Integumentary: reports: Dryness Neuro: reports: Headache, Tremors Endocrine: reports: No Symptoms Reported, Other (borderline dm) Hematology: reports: No Symptoms Reported, See HPI, Anemia Psychiatric: reports: No Sypmtoms Reported, Judgement Intact, Mood/Affect Appropiate, Orientated x3, Anxious, Depressed, other (bipolar disorder) Other Systems: Reviewed and Negative (hypothyroidism) Patient History - Patient Medical History Hx Anemia: Yes (iron non compliance) Hx Asthma: Yes (on albuterol inhaler) Hx Chronic Obstructive Pulmonary Disease (COPD): Yes (on albuterol inhaler) Hx Cancer: No Hx Cardiac Disorders: No Hx Congestive Heart Failure: No Hx Hypertension: Yes Hx Hypercholesterolemia: No Hx Pacemaker: No HX Cerebrovascular Accident: No Hx Seizures: Yes (2014) Hx Dementia: No Hx Diabetes: No Hx Gastrointestinal Disorders: Yes (GERD) Hx Liver Disease: No Hx Genitourinary Disorders: No Hx Sexually Transmitted Disorders: No Hx Renal Disease (ESRD): No Hx Thyroid Disease: No Hx Human Immunodeficiency Virus (HIV): No (REFUSED TEST SHE WAS TESTED ONE MONTH AGO AND NEGATIVE) Hx Hepatitis C: No Hx Depression: No Hx Suicide Attempt: No Hx Bipolar Disorder: Yes (no meds) Hx Schizophrenia: No Other Medical History: no suicidal.no homicidal,hypothyroidism - Patient Surgical History Past Surgical History: Yes Hx Neurologic Surgery: No Hx Cataract Extraction: No Hx Cardiac Surgery: No Hx Lung Surgery: No Hx Breast Surgery: No Hx Breast Biopsy: No Hx Abdominal Surgery: No Hx Appendectomy: No Hx Cholecystectomy: No Hx Genitourinary Surgery: No Hx Section: Yes (1997) Hx Orthopedic Surgery: Yes (2015 right knee replacement, 2012 left neck abscess) Hx Hysterectomy: No Anesthesia Reaction: No - PPD History Previous Implant?: Yes Documented Results: Negative w/proof Implanted On Prior [facility] Admission?: Yes Date: 07/14/18 Results: NEGATIVE PPD to be Administered?: No - Reproductive History Patient is a Female of Child Bearing Age (11 -55 yrs old): Yes Last Menstrual Period: 01/07/16 Patient : No - Smoking Cessation Smoking history: Current every day smoker Have you smoked in the past 12 months: Yes Aproximately how many cigarettes per day: 20 Hx Chewing Tobacco Use: No Initiated information on smoking cessation: Yes 'Breaking Loose' booklet given: 08/31/18 - Substance & Tx. History Hx Alcohol Use: Yes Hx Substance Use: Yes Substance Use Type: Alcohol, Cocaine, Marijuana Hx Substance Use Treatment: Yes ([facility] 07/12/18 to 08/16/18) - Substances Abused Alcohol Route: Oral Frequency: Daily Amount used: 2 PINTS VODKA Age of first use: 17 Date of Last Use: 08/31/18 Cocaine Route: Smoking Frequency: 1-2 times per week Amount used: 1-2 BAGS Age of first use: 21 Date of Last Use: 08/30/18 Marijuana/Hashish Route: Smoking Frequency: 1-2 times per week Amount used: 1 JOINT Age of first use: 10 Date of Last Use: 08/30/18 Family Disease History - Family Disease History Family Disease History: Diabetes: Grandparent, Heart Disease: Mother ( CANCER), CA: Father (, etoh), Mother, Other: Father, Mother, Brother ( etoh), Sister ( due to alcohol) Admission Physical Exam [facility] - Vital Signs Vital Signs: Vital Signs Temperature 98.1 F 08/31/18 15:17 Pulse Rate 73 08/31/18 15:17 Respiratory Rate 18 08/31/18 15:17 Blood Pressure 147/91 08/31/18 15:17 O2 Sat by Pulse Oximetry (%) - Physical General Appearance: Yes: Moderate Distress, Tremorous, Irritable, Sweating, Anxious HEENTM: Yes: Normal ENT Inspection, FLO, Pharynx Normal Respiratory: Yes: Lungs Clear, Normal Breath Sounds, No Respiratory Distress Neck: Yes: Within Normal Limits, Supple, Trachea in good position Breast: Yes: Breast Exam Deferred Cardiology: Yes: Within Normal Limits, Regular Rhythm, Regular Rate, S1, S2 Abdominal: Yes: Within Normal Limits, Normal Bowel Sounds, Non Tender, Soft Genitourinary: Yes: Within Normal Limits Back: Yes: Muscle Spasm Musculoskeletal: Yes: Back pain, Muscle Pain Extremities: Yes: Tremors Neurological: Yes: customer service operator II-XII NML intact, Fully Oriented, Alert, Motor Strength 5/5 Integumentary: Yes: Dry Lymphatic: Yes: Within Normal Limits - Diagnostic (1) Alcohol dependence with uncomplicated withdrawal Current Visit: No Status: Acute (2) 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 (5) Cocaine abuse Current Visit: No Status: Chronic (6) Hypertension Current Visit: No Status: Chronic Qualifiers: Hypertension type: essential hypertension Qualified Code(s): I10 - Essential (primary) hypertension (7) Insomnia Current Visit: No Status: Chronic Qualifiers: Insomnia type: primary Qualified Code(s): F51.01 - Primary insomnia (8) Nicotine dependence Current Visit: No Status: Chronic Qualifiers: Nicotine product type: cigarettes Substance use status: uncomplicated Qualified Code(s): F17.210 - Nicotine dependence, cigarettes, uncomplicated (9) Cirrhosis Current Visit: No Status: Suspected Qualifiers: Ascites presence: unspecified Cleared for Admission [facility] - Detox or Rehab S Level of Care: Medically Managed Detox Regimen/Protocol: Librium (patient does not want ativan,wanted librium, stated has no problem with librium) S Breath Alcohol Content Breath Alcohol Content: 0 Inpatient Rehab Admission - Rehab Decision to Admit Inpatient rehab admission?: No
[2018-08-31 15:20] VITALS: BMI 22.3
[2018-08-31] MEDS ORDERED: chlordiazePOXIDE HCL 25 MG CAPSULE PO PRN (15:42)
[2018-08-31] MEDS ORDERED: MAG HYDROX/AL HYDROX/SIMETH 30 ML UNIT-DOSE CUP PO PRN (15:42)
[2018-08-31] MEDS ORDERED: MAGNESIUM CITRATE 300 ML BOTTLE PO PRN (15:42)
[2018-08-31] MEDS ORDERED: hydrOXYzine PAMOATE 25 MG CAPSULE (FP) PO PRN (15:42)
[2018-08-31] MEDS ORDERED: METHOCARBAMOL 500 MG TABLET PO PRN (15:42)
[2018-08-31] MEDS ORDERED: IBUPROFEN 400 MG TABLET (FP) PO PRN (15:42)
[2018-08-31] MEDS ORDERED: MAGNESIUM HYDROX 2400MG/30ML ORAL SUSPENSION 30 ML CUP PO PRN (15:42)
[2018-08-31] MEDS ORDERED: BISMUTH SUBSALICYLATE 524 MG/30 ML UD PO PRN (15:42)
[2018-08-31] MEDS ORDERED: MENTHOL/PHENOL 1 EACH UD MM PRN (15:42)
[2018-08-31] MEDS ORDERED: MELATONIN 5 MG TABLETS PO PRN (15:42)
[2018-08-31] MEDS: chlordiazePOXIDE HCL 25 MG CAPSULE PO SCH ×2 (16:51→22:34)
--- NOTE | 2018-08-31 17:35 | PN ---
[facility] Progress Note Note: Psychiatry Attending's note : Ms Calixto was approached at bedside for psychiatric interview. " I just arrived. I need some rest. I feel very tired and sleepy ". Patient requested that the evaluation be deferred for now. " I will talk to you some other time ". Respite granted. Unit psychiatrist will follow in AM.
[2018-08-31] MEDS: GABAPENTIN 400 MG CAPSULE (FP) PO SCH (22:34)
[2018-08-31] MEDS: THIAMINE HCL 100 MG TABLET (FP) PO SCH (22:34)
[2018-09-01] MEDS: chlordiazePOXIDE HCL 25 MG CAPSULE PO SCH ×4 (07:14→22:10)
[2018-09-01] MEDS: GABAPENTIN 400 MG CAPSULE (FP) PO SCH ×3 (07:14→22:10)
[2018-09-01] MEDS: PRENATAL VITAMINS W/ FOLIC ACID TABLET (FP) PO SCH (10:16)
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
[2018-09-01 10:59] LABS: HEMATOCRIT 31.3 % (32.4-45.2); HEMOGLOBIN 10.4 GM/dL (10.7-15.3); MCH 32.4 pg (25.7-33.7); MCHC 33.3 g/dl (32.0-36.0); MEAN CELL VOLUME 97.4 fl (80-96); MEAN PLT VOLUME 8.5 fl (7.5-11.1); PLATELET COUNT 103 K/MM3 (134-434); RBC 3.21 M/mm3 (3.60-5.2); RDW 21.8 % (11.6-15.6); WHITE BLOOD COUNT 6.5 K/mm3 (4.0-10.0)
[2018-09-01] MEDS: ATENOLOL 25 MG TABLET (FP) PO SCH (11:10)
[2018-09-01 11:17] LABS: ALBUMIN 2.9 g/dl (3.4-5.0); ALK PHOS 199 U/L (45-117); ANION GAP 9 MMOL/L (8-16); BILIRUBIN,TOTAL 2.5 mg/dL (0.2-1); BLOOD UREA NITROGEN 5 mg/dL (7-18); CALCIUM 7.9 mg/dL (8.5-10.1); CHLORIDE 98 mmol/L (98-107); CO2 27 mmol/L (21-32); CREATININE 0.6 mg/dL (0.55-1.3); GLUCOSE,RANDOM 80 mg/dL (74-106); POTASSIUM 3.1 mmol/L (3.5-5.1); SGOT/AST 60 U/L (15-37); SGPT/ALT 33 U/L (13-61); SODIUM 135 mmol/L (136-145)
[2018-09-01] MEDS: risperiDONE 1 MG TABLET (FP) PO SCH ×2 (12:10→22:11)
--- NOTE | 2018-09-01 14:02 | PN ---
S CIWA - CIWA Score Nausea/Vomitin-No Nausea/No Vomiting Muscle Tremors: 3 Anxiety: 3 Agitation: 4-Moderately Restless Paroxysmal Sweats: 2 Orientation: 0-Oriented Tacttile Disturbances: 0-None Auditory Disturbances: 0-None Visual Disturbances: 0-None Headache: 0-None Present CIWA-Ar Total Score: 12 S Progress Note (SOAP) Subjective: shakes sweats interrupted sleep body aches Objective: 09/01/18 14:01 Vital Signs Temperature 98.2 F 09/01/18 13:52 Pulse Rate 79 09/01/18 13:52 Respiratory Rate 18 09/01/18 13:52 Blood Pressure 126/52 L 09/01/18 13:52 O2 Sat by Pulse Oximetry (%) Laboratory Tests 09/01/18 09/01/18 09/01/18 07:00 07:00 07:00 WBC 6.5 RBC 3.21 L Hgb 10.4 L Hct 31.3 L MCV 97.4 H MCH 32.4 MCHC 33.3 RDW 21.8 H Plt Count 103 L MPV 8.5 Sodium 135 L Potassium 3.1 L Chloride 98 Carbon Dioxide 27 Anion Gap 9 BUN 5 L Creatinine 0.6 Creat Clearance w eGFR > 60 Random Glucose 80 Calcium 7.9 L Total Bilirubin 2.5 H AST 60 H ALT 33 Alkaline Phosphatase 199 H Total Protein 8.0 Albumin 2.9 L RPR Titer Nonreactive labs noted low H:H hypokalemia 3.1 aaox3 ambulating no acute distress Assessment: 09/01/18 14:02 withdrawal sx Plan: continue detox increase fluids replenish low potassium and slight anemia
[2018-09-01] MEDS ORDERED: POTASSIUM CHLORIDE TABS 20 MEQ TABLET.ER (FP) PO ONE (14:03)
[2018-09-01] MEDS: traZODone HCL 100 MG TABLET (FP) PO SCH (22:10)
[2018-09-01] MEDS: THIAMINE HCL 100 MG TABLET (FP) PO SCH (22:11)
[2018-09-01] MEDS: FERROUS SO4 325 MG TABLET (FP) PO SCH (22:11)
[2018-09-02] MEDS: chlordiazePOXIDE HCL 25 MG CAPSULE PO SCH ×2 (06:33→10:10)
[2018-09-02] MEDS: GABAPENTIN 400 MG CAPSULE (FP) PO SCH ×3 (08:00→22:29)
[2018-09-02] MEDS: PRENATAL VITAMINS W/ FOLIC ACID TABLET (FP) PO SCH (10:10)
[2018-09-02] MEDS: ATENOLOL 25 MG TABLET (FP) PO SCH (10:10)
[2018-09-02] MEDS: POTASSIUM CHLORIDE TABS 20 MEQ TABLET.ER (FP) PO SCH (10:10)
[2018-09-02] MEDS: FERROUS SO4 325 MG TABLET (FP) PO SCH ×2 (10:10→22:28)
[2018-09-02] MEDS: risperiDONE 1 MG TABLET (FP) PO SCH ×2 (10:10→22:29)
--- NOTE | 2018-09-02 12:40 | PN ---
[facility] CIWA - CIWA Score Nausea/Vomitin-No Nausea/No Vomiting Muscle Tremors: 2 Anxiety: 3 Agitation: 3 Paroxysmal Sweats: 2 Orientation: 0-Oriented Tacttile Disturbances: 0-None Auditory Disturbances: 0-None Visual Disturbances: 0-None Headache: 0-None Present CIWA-Ar Total Score: 10 [facility] Progress Note (SOAP) Subjective: irritable agitation interrupted sleep tired Objective: 09/02/18 12:39 Vital Signs Temperature 98.6 F 09/02/18 09:45 Pulse Rate 82 09/02/18 09:45 Respiratory Rate 18 09/02/18 09:45 Blood Pressure 134/72 09/02/18 09:45 O2 Sat by Pulse Oximetry (%) Laboratory Tests 09/01/18 09/01/18 09/01/18 07:00 07:00 07:00 WBC 6.5 RBC 3.21 L Hgb 10.4 L Hct 31.3 L MCV 97.4 H MCH 32.4 MCHC 33.3 RDW 21.8 H Plt Count 103 L MPV 8.5 Sodium 135 L Potassium 3.1 L Chloride 98 Carbon Dioxide 27 Anion Gap 9 BUN 5 L Creatinine 0.6 Creat Clearance w eGFR > 60 Random Glucose 80 Calcium 7.9 L Total Bilirubin 2.5 H AST 60 H ALT 33 Alkaline Phosphatase 199 H Total Protein 8.0 Albumin 2.9 L RPR Titer Nonreactive labs noted aaox3 ambulating no acute distress Assessment: 09/02/18 12:39 withdrawal sx Plan: continue detox increase fluids
[2018-09-02] MEDS ORDERED: chlordiazePOXIDE HCL 10 MG CAPSULE PO PRN (17:00)
[2018-09-02] MEDS: chlordiazePOXIDE HCL 10 MG CAPSULE PO SCH ×2 (17:17→22:28)
[2018-09-02] MEDS: traZODone HCL 100 MG TABLET (FP) PO SCH (22:28)
[2018-09-02] MEDS: THIAMINE HCL 100 MG TABLET (FP) PO SCH (22:29)
[2018-09-03] MEDS: GABAPENTIN 400 MG CAPSULE (FP) PO SCH ×3 (06:01→22:30)
[2018-09-03] MEDS: chlordiazePOXIDE HCL 10 MG CAPSULE PO SCH ×3 (06:01→17:18)
[2018-09-03] MEDS ORDERED: ONDANSETRON *ODT* 4 MG TABLET SL PRN (09:23)
[2018-09-03 09:39] LABS: BASO % 0.5 % (0-2.0); HEMATOCRIT 32.6 % (32.4-45.2); HEMOGLOBIN 10.6 GM/dL (10.7-15.3); LYMPH % 17.2 % (8-40); MCH 33.2 pg (25.7-33.7); MCHC 32.6 g/dl (32.0-36.0); MEAN CELL VOLUME 101.6 fl (80-96); MEAN PLT VOLUME 8.7 fl (7.5-11.1); MONO % 9.7 % (3.8-10.2); NEUT % 71.6 % (42.8-82.8); PLATELET COUNT 124 K/MM3 (134-434); RBC 3.21 M/mm3 (3.60-5.2); RDW 21.8 % (11.6-15.6)
[2018-09-03] MEDS: PRENATAL VITAMINS W/ FOLIC ACID TABLET (FP) PO SCH (10:07)
[2018-09-03] MEDS: ATENOLOL 25 MG TABLET (FP) PO SCH (10:07)
[2018-09-03] MEDS: FERROUS SO4 325 MG TABLET (FP) PO SCH ×2 (10:07→22:30)
[2018-09-03] MEDS: risperiDONE 1 MG TABLET (FP) PO SCH ×2 (10:07→22:30)
[2018-09-03] MEDS: POTASSIUM CHLORIDE TABS 20 MEQ TABLET.ER (FP) PO SCH (10:07)
[2018-09-03 10:12] LABS: ALBUMIN 3.1 g/dl (3.4-5.0); ALK PHOS 193 U/L (45-117); ANION GAP 10 MMOL/L (8-16); BILIRUBIN,TOTAL 0.8 mg/dL (0.2-1); BLOOD UREA NITROGEN 6 mg/dL (7-18); CALCIUM 8.5 mg/dL (8.5-10.1); CHLORIDE 102 mmol/L (98-107); CO2 25 mmol/L (21-32); CREATININE 0.6 mg/dL (0.55-1.3); GLUCOSE,RANDOM 123 mg/dL (74-106); POTASSIUM 3.7 mmol/L (3.5-5.1); SGOT/AST 33 U/L (15-37); SGPT/ALT 28 U/L (13-61); SODIUM 137 mmol/L (136-145); TOT PROT 8.4 g/dl (6.4-8.2)
--- NOTE | 2018-09-03 13:42 | PN ---
[facility] Progress Note (SOAP) Subjective: tired sweats nausea Objective: 09/03/18 13:40 Vital Signs Temperature 98.2 F 09/03/18 13:31 Pulse Rate 82 09/03/18 13:31 Respiratory Rate 18 09/03/18 13:31 Blood Pressure 110/61 09/03/18 13:31 O2 Sat by Pulse Oximetry (%) Laboratory Tests 09/01/18 09/01/18 09/01/18 07:00 07:00 07:00 WBC 6.5 RBC 3.21 L Hgb 10.4 L Hct 31.3 L MCV 97.4 H MCH 32.4 MCHC 33.3 RDW 21.8 H Plt Count 103 L MPV 8.5 Absolute Neuts (auto) Neutrophils % Lymphocytes % Monocytes % Eosinophils % Basophils % Nucleated RBC % Sodium 135 L Potassium 3.1 L Chloride 98 Carbon Dioxide 27 Anion Gap 9 BUN 5 L Creatinine 0.6 Creat Clearance w eGFR > 60 Random Glucose 80 Calcium 7.9 L Total Bilirubin 2.5 H AST 60 H ALT 33 Alkaline Phosphatase 199 H Total Protein 8.0 Albumin 2.9 L RPR Titer Nonreactive 09/03/18 09/03/18 07:40 07:40 WBC 5.0 RBC 3.21 L Hgb 10.6 L Hct 32.6 MCV 101.6 H MCH 33.2 MCHC 32.6 RDW 21.8 H Plt Count 124 L D MPV 8.7 Absolute Neuts (auto) 3.6 Neutrophils % 71.6 Lymphocytes % 17.2 Monocytes % 9.7 Eosinophils % 1.0 Basophils % 0.5 Nucleated RBC % 0 Sodium 137 Potassium 3.7 Chloride 102 Carbon Dioxide 25 Anion Gap 10 BUN 6 L Creatinine 0.6 Creat Clearance w eGFR 109.63 Random Glucose 123 H Calcium 8.5 Total Bilirubin 0.8 AST 33 ALT 28 Alkaline Phosphatase 193 H Total Protein 8.4 H Albumin 3.1 L RPR Titer repeated labs for potassium, platelets show improvement. H:H are low but pt just started iron supplement aaox3 ambulating no acute distress Assessment: 09/03/18 13:41 mild withdrawal sx Plan: continue detox zofran prn increase fluids d/c kdur d/c in am
[2018-09-03] MEDS: traZODone HCL 100 MG TABLET (FP) PO SCH (22:30)
[2018-09-03] MEDS: THIAMINE HCL 100 MG TABLET (FP) PO SCH (22:30)
[2018-09-04] MEDS ORDERED: guaiFENesin 200 MG/10 ML 10 ML UNIT-DOSE CUPS PO PRN (01:54)
[2018-09-04] MEDS: GABAPENTIN 400 MG CAPSULE (FP) PO SCH (06:16)
[2018-09-04] MEDS: chlordiazePOXIDE HCL 10 MG CAPSULE PO SCH (06:16)
[2018-09-04 07:48] VITALS: BP 116/67; PULSE 87; TEMP 99.5
--- NOTE | 2018-09-04 14:02 | DS ---
[facility] Detox Discharge Summary Admission Date: 08/31/18 Discharge Date: 09/04/18 - History Present History: Alcohol Dependence, Cannabis Dependence, Cocaine Dependence Pertinent Past History: Anemia, COPD,asthma, seizure disorder,GERD, Bipolar disorder, HTN - Physical Exam Results Vital Signs: Vital Signs Temperature 99.5 F 09/04/18 07:48 Pulse Rate 87 09/04/18 07:48 Respiratory Rate 18 09/04/18 07:48 Blood Pressure 116/67 09/04/18 07:48 O2 Sat by Pulse Oximetry (%) Pertinent Admission Physical Exam Findings: Withdrawal sx - Treatment Hospital Course: Detox Protocol Followed, Detoxed Safely, Responded well, Discharged Condition Good - Medication Discharge Medications: Ambulatory Orders traZODone HCL [Trazodone HCl] 100 mg PO HS #30 tablet 08/11/16 Gabapentin [Neurontin -] 400 mg PO TID #90 09/07/16 Risperidone [Risperdal -] 2 mg PO BID #60 tablet 09/07/16 Atenolol [Tenormin -] 0 mg PO DAILY 08/31/18 - Diagnosis (1) Alcohol dependence with uncomplicated withdrawal Status: Acute (2) Cannabis dependence Status: Acute (3) Cocaine dependence with withdrawal Status: Acute (4) Anemia Status: Chronic (5) GERD (gastroesophageal reflux disease) Status: Chronic Qualifiers: (6) Hypertension Status: Chronic Qualifiers: Hypertension type: essential hypertension Qualified Code(s): I10 - Essential (primary) hypertension (7) Nicotine dependence Status: Chronic Qualifiers: Nicotine product type: cigarettes Substance use status: uncomplicated Qualified Code(s): F17.210 - Nicotine dependence, cigarettes, uncomplicated - AMA Did Patient Leave Against Medical Advice: No
== END 2018-09-04 09:01 | disposition home or self-care (01) | DRG 774 ==
LOC: YASAS 12:37 → Y6N 15:47
PROVIDERS: ADMIT Surgery; ATTEND Surgery
PROC: HZ2ZZZZ Detoxification Services for Substance Abuse Treatment (ICD-10-PCS; principal; 2018-08-31)
DX: F10.230 Alcohol dependence with withdrawal, uncomplicated (principal); F14.20 Cocaine dependence, uncomplicated; F12.20 Cannabis dependence, uncomplicated; F17.210 Nicotine dependence, cigarettes, uncomplicated; F19.282 Other psychoactive substance dependence with psychoactive substance-induced sleep disorder; F19.24 Other psychoactive substance dependence with psychoactive substance-induced mood disorder; F31.9 Bipolar disorder, unspecified; I10 Essential (primary) hypertension; J44.9 Chronic obstructive pulmonary disease, unspecified; J45.909 Unspecified asthma, uncomplicated; K74.60 Unspecified cirrhosis of liver; D64.9 Anemia, unspecified; K21.9 Gastro-esophageal reflux disease without esophagitis; G40.909 Epilepsy, unspecified, not intractable, without status epilepticus; E87.6 Hypokalemia; Z96.651 Presence of right artificial knee joint
CPT/HCPCS: 36415; 80053; 85025; 85027; 86593; J2794; Q0162

== ENCOUNTER 2020-09-20 14:21 | Inpatient (IN) | payer BC ==
[2020-09-20 15:16] VITALS: BMI 26.3
[2020-09-20] MEDS ORDERED: BISMUTH SUBSALICYLATE 524 MG/30 ML UD PO PRN (15:46)
[2020-09-20] MEDS ORDERED: ONDANSETRON *ODT* 4 MG TABLET SL PRN (15:46)
[2020-09-20] MEDS ORDERED: MAG HYDROX/AL HYDROX/SIMETH 30 ML UNIT-DOSE CUP PO PRN (15:46)
[2020-09-20] MEDS ORDERED: MAGNESIUM HYDROX 2400MG/30ML ORAL SUSPENSION 30 ML CUP PO PRN (15:46)
[2020-09-20] MEDS ORDERED: METHOCARBAMOL 500 MG TABLET PO PRN (15:46)
[2020-09-20] MEDS ORDERED: MAGNESIUM CITRATE 300 ML BOTTLE PO PRN (15:46)
[2020-09-20] MEDS ORDERED: IBUPROFEN 400 MG TABLET (FP) PO PRN (15:46)
[2020-09-20] MEDS ORDERED: NICOTINE POLACRILEX 2 MG GUM BUC PRN (15:46)
[2020-09-20] MEDS ORDERED: MENTHOL/PHENOL 1 EACH UD MM PRN (15:46)
[2020-09-20] MEDS ORDERED: LORazepam 1 MG TABLET PO PRN (15:46)
[2020-09-20] MEDS: LORazepam 2 MG TABLET PO SCH ×3 (16:52→22:35)
[2020-09-20 16:53] LABS: HEMATOCRIT 36.9 % (32.4-45.2); HEMOGLOBIN 12.2 GM/dL (10.7-15.3); MCH 33.9 pg (25.7-33.7); MCHC 33.1 g/dl (32.0-36.0); MEAN CELL VOLUME 102.4 fl (80-96); PLATELET COUNT 158 K/MM3 (134-434); RBC 3.61 M/mm3 (3.60-5.2); RDW 16.5 % (11.6-15.6); WHITE BLOOD COUNT 4.7 K/mm3 (4.0-10.0)
[2020-09-20] MEDS: PRENATAL VITAMINS W/ FOLIC ACID TABLET (FP) PO SCH (16:53)
[2020-09-20 16:55] LABS: POTASSIUM 3.3 mmol/L (3.5-5.1)
[2020-09-20 16:57] LABS: ALBUMIN 3.5 g/dl (3.4-5.0); BLOOD UREA NITROGEN 5.5 mg/dL (7-18); CALCIUM 8.6 mg/dL (8.5-10.1)
[2020-09-20 17:00] LABS: CREATININE 0.7 mg/dL (0.55-1.3)
[2020-09-20 17:02] LABS: BILIRUBIN,TOTAL 0.7 mg/dL (0.2-1); TOT PROT 7.7 g/dl (6.4-8.2)
[2020-09-20] MEDS: hydrOXYzine PAMOATE 25 MG CAPSULE (FP) PO SCH ×2 (17:06→22:40)
[2020-09-20] MEDS: MELATONIN 5 MG TABLETS PO SCH (22:35)
[2020-09-20] MEDS: THIAMINE HCL 100 MG TABLET (FP) PO SCH (22:35)
[2020-09-21] MEDS: hydrOXYzine PAMOATE 25 MG CAPSULE (FP) PO SCH ×5 (06:35→22:26)
[2020-09-21] MEDS: LORazepam 2 MG TABLET PO SCH ×4 (06:35→22:25)
[2020-09-21] MEDS: PRENATAL VITAMINS W/ FOLIC ACID TABLET (FP) PO SCH (10:17)
[2020-09-21] MEDS: GABAPENTIN 300 MG CAPSULE PO SCH ×2 (14:35→22:24)
[2020-09-21] MEDS ORDERED: POTASSIUM CHLORIDE ORAL LIQUID 20 MEQ/15 ML PO ONE (17:02)
[2020-09-21] MEDS: risperiDONE 1 MG TABLET PO SCH (22:24)
[2020-09-21] MEDS: THIAMINE HCL 100 MG TABLET (FP) PO SCH (22:24)
[2020-09-21] MEDS: POTASSIUM CHLORIDE ORAL LIQUID 20 MEQ/15 ML PO SCH (22:24)
[2020-09-21] MEDS: traZODone HCL 50 MG TABLET (FP) PO SCH (22:24)
[2020-09-21] MEDS: MELATONIN 5 MG TABLETS PO SCH (22:24)
[2020-09-22] MEDS: GABAPENTIN 300 MG CAPSULE PO SCH ×3 (07:10→22:10)
[2020-09-22] MEDS: LORazepam 1 MG TABLET PO SCH ×4 (07:10→22:11)
[2020-09-22] MEDS: hydrOXYzine PAMOATE 25 MG CAPSULE (FP) PO SCH ×5 (07:11→22:10)
[2020-09-22] MEDS: PRENATAL VITAMINS W/ FOLIC ACID TABLET (FP) PO SCH (10:17)
[2020-09-22] MEDS: POTASSIUM CHLORIDE ORAL LIQUID 20 MEQ/15 ML PO SCH ×2 (10:17→22:10)
[2020-09-22] MEDS: risperiDONE 1 MG TABLET PO SCH ×2 (10:17→22:10)
[2020-09-22] MEDS: traZODone HCL 50 MG TABLET (FP) PO SCH (22:10)
[2020-09-22] MEDS: MELATONIN 5 MG TABLETS PO SCH (22:10)
[2020-09-22] MEDS: THIAMINE HCL 100 MG TABLET (FP) PO SCH (22:10)
[2020-09-23] MEDS ORDERED: LORazepam 0.5 MG TABLET PO PRN
[2020-09-23] MEDS: LORazepam 0.5 MG TABLET PO SCH ×4 (06:01→22:49)
[2020-09-23] MEDS: GABAPENTIN 300 MG CAPSULE PO SCH ×3 (06:01→22:47)
[2020-09-23] MEDS: hydrOXYzine PAMOATE 25 MG CAPSULE (FP) PO SCH ×5 (06:01→22:47)
[2020-09-23 10:09] LABS: SARS-CoV-2 NAA Not Detected (Not Detected)
[2020-09-23] MEDS: POTASSIUM CHLORIDE ORAL LIQUID 20 MEQ/15 ML PO SCH ×2 (10:17→22:49)
[2020-09-23] MEDS: risperiDONE 1 MG TABLET PO SCH ×2 (10:17→22:47)
[2020-09-23] MEDS: PRENATAL VITAMINS W/ FOLIC ACID TABLET (FP) PO SCH (10:18)
[2020-09-23] MEDS: MELATONIN 5 MG TABLETS PO SCH (22:46)
[2020-09-23] MEDS: THIAMINE HCL 100 MG TABLET (FP) PO SCH (22:47)
[2020-09-23] MEDS: traZODone HCL 50 MG TABLET (FP) PO SCH (22:47)
[2020-09-24] MEDS ORDERED: LORazepam 0.5 MG TABLET PO ONE (05:00)
[2020-09-24] MEDS: GABAPENTIN 300 MG CAPSULE PO SCH ×2 (05:49→15:02)
[2020-09-24] MEDS: hydrOXYzine PAMOATE 25 MG CAPSULE (FP) PO SCH ×3 (05:50→15:02)
[2020-09-24] MEDS: risperiDONE 1 MG TABLET PO SCH (09:23)
[2020-09-24] MEDS: PRENATAL VITAMINS W/ FOLIC ACID TABLET (FP) PO SCH (09:23)
[2020-09-24 09:43] VITALS: BP 126/77; PULSE 90; TEMP 97.3
== END 2020-09-24 09:15 | disposition home or self-care (01) | DRG 774 ==
LOC: YASAS 14:21 → Y3N 15:31
PROVIDERS: ADMIT Allergy & Immunology; ATTEND Allergy & Immunology
PROC: HZ2ZZZZ Detoxification Services for Substance Abuse Treatment (ICD-10-PCS; principal; 2020-09-20)
DX: F10.230 Alcohol dependence with withdrawal, uncomplicated (principal); F14.20 Cocaine dependence, uncomplicated; F19.20 Other psychoactive substance dependence, uncomplicated; F12.20 Cannabis dependence, uncomplicated; F17.210 Nicotine dependence, cigarettes, uncomplicated; F19.24 Other psychoactive substance dependence with psychoactive substance-induced mood disorder; F31.9 Bipolar disorder, unspecified; F20.9 Schizophrenia, unspecified; F51.05 Insomnia due to other mental disorder; G47.00 Insomnia, unspecified; D64.9 Anemia, unspecified; J44.9 Chronic obstructive pulmonary disease, unspecified; K21.9 Gastro-esophageal reflux disease without esophagitis; I10 Essential (primary) hypertension; R01.1 Cardiac murmur, unspecified; R73.03 Prediabetes; Z96.651 Presence of right artificial knee joint; Z96.649 Presence of unspecified artificial hip joint; Z87.19 Personal history of other diseases of the digestive system; Z87.81 Personal history of (healed) traumatic fracture; Z98.890 Other specified postprocedural states; Z86.69 Personal history of other diseases of the nervous system and sense organs; Z91.013 Allergy to seafood; Z88.6 Allergy status to analgesic agent
CPT/HCPCS: 36415; 80053; 81025; 84132; 85027; 86780; C9803; J2794; U0003; U0005